=== PATIENT | female | born 1940 | race Caucasian/White ===

== ENCOUNTER 2020-10-24 10:15 | Emergency (ER) | payer OTHER ==
[~2020-10-24] VITALS: Ht 167.6 cm; Wt 67.6 kg
[2020-10-24] MEDS ORDERED: DILTIAZEM ER180 M2 PO (11:13)
[2020-10-24] MEDS ORDERED: ELIQUIS5 MG PO (11:14)
[2020-10-24] MEDS ORDERED: NORCO5 PO (11:14)
[2020-10-24] MEDS ORDERED: LIPITOR 10 MG10 M1 PO (11:14)
[2020-10-24] MEDS ORDERED: ALBUTEROL2.5 MG/0.5 INH (11:15)
[2020-10-24] MEDS ORDERED: FUROSEMIDE 20 M20 MG PO (11:15)
[2020-10-24] MEDS ORDERED: CARVEDILOL12.5 MG PO (11:16)
[2020-10-24] MEDS ORDERED: HYDRALAZINE 2525 MG PO (11:16)
[2020-10-24] MEDS ORDERED: WOMEN MULTIVIT1 EAC1 PO (11:16)
[2020-10-24] MEDS ORDERED: IMDUR 30 MG TAB30 M1 PO (11:17)
[2020-10-24] MEDS ORDERED: CEPHALEXIN500 MG PO (12:11)
[2020-10-24 12:36] VITALS: BP 98/60
--- NOTE | 2020-10-25 14:05 | EKG ---
[place] [address] ELECTROCARDIOGRAM REPORT Name: KELLI PHILLIPS Room: [facility]#: [id number] Admission: 10/24/20 Attend Phys: Discharge: 10/24/20 Date of : 42 Date of Service: 10/24/20 1059 Report #: [id number] THIS REPORT FOR: //name// [facility] ED Test Date: 2020-10-24 Test Time: 10:59:18 Pat Name: KELLI PHILLIPS Department: Room: Gender: Mrp Controller: : 1940 Requested By: Lew Ramirez Order Number: [id number] MD: Jamarcus Tian Measurements Intervals [place] Rate: 78 P: ND: QRS: -60 QRSD: 104 T: 86 QT: 420 QTc: 479 Interpretive Statements Atrial fibrillation Left anterior fascicular block Anteroseptal infarct, 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
== END 2020-10-24 12:38 | disposition home or self-care (01) ==
LOC: M.ERS 10:15
DX: J40 Bronchitis, not specified as acute or chronic (principal); Z88.0 Allergy status to penicillin; Z79.899 Other long term (current) drug therapy; Z86.73 Personal history of transient ischemic attack (TIA), and cerebral infarction without residual deficits; Z90.710 Acquired absence of both cervix and uterus; Z85.3 Personal history of malignant neoplasm of breast

== ENCOUNTER 2021-01-14 06:10 | Inpatient (IN) | payer OTHER ==
[~2021-01-14] VITALS: Ht 152.4 cm; Wt 86.1 kg
[2021-01-14] VITALS (108 sets, daily range): BP systolic 66–148; BP diastolic 19–87
--- NOTE | ~2021-01-14 | PROC ---
[facility] [address] [place] [address] PROCEDURE REPORT Name: KELLI PHILLIPS Room: [address] IN M.R.#: [id number] Admission: 01/14/21 Attend Phys: Ramila Vaca Discharge: 02/08/21 Date of : 42 Report #: [id number] THIS REPORT FOR: cc: Anayeli Montanez NP, Michelle NP [facility],Medical Records Staff ~ For GI report, please see the Provation report in Perceptive 7 content. By: 0843Medical Records Staff GEOFFREY /DORETHA
[~2021-01-14 06:10] MED LIST: ALBUTEROL2.5 MG/0.5 INH; CARVEDILOL12.5 MG PO; CEPHALEXIN500 MG PO; DILTIAZEM ER180 M2 PO; ELIQUIS5 MG PO; FUROSEMIDE 20 M20 MG PO; HYDRALAZINE 2525 MG PO; IMDUR 30 MG TAB30 M1 PO; LIPITOR 10 MG10 M1 PO; NORCO5 PO; WOMEN MULTIVIT1 EAC1 PO
[2021-01-14 07:09] LABS: BE -23.2 mmol/L (-2 to +3); PCO2 24.3 mmHg (35.0-45.0)
[2021-01-14 07:11] LABS: pH 7.023 (7.340-7.450)
[2021-01-14 07:31] LABS: URINE BILIRUBIN NEGATIVE (Negative); URINE BLOOD NEGATIVE (Negative); URINE CLARITY CLEAR; URINE COLOR YELLOW; URINE GLUCOSE-RANDOM NEGATIVE (Negative); URINE KETONES NEGATIVE (Negative); URINE LEUKOCYTES-REFLEX NEGATIVE (Negative); URINE NITRITE-REFLEX NEGATIVE (Negative); URINE PROTEIN 1+ (Negative); URINE SPECIFIC GRAVITY >= 1.030 (1.005-1.030); URINE UROBILINOGEN 0.2 E.U./dl (0.2-1.0)
[2021-01-14 07:42] LABS: HEMOGLOBIN 9.3 gm/dL (12.0-15.0); MCH 29.5 pg (26.0-34.0); MCHC 33.2 g/dL (28.0-37.0); MCV 88.7 fL (80.0-100.0); MPV 7.6 fl. (7.2-11.1); NUCLEATED RBCS 0 /100WBC; PLATELET COUNT* 253 thou/uL (150-400); RBC 3.15 mil/uL (4.20-5.00); RDW-CV 16.8 % (10.5-14.5); WBC 10.3 thou/uL (4.0-11.0)
[2021-01-14 07:50] LABS: CALCIUM 6.5 mg/dL (8.5-10.1); CREATININE 9.3 mg/dL (0.6-1.3)
[2021-01-14 07:53] LABS: POTASSIUM 8.1 mmol/L (3.5-5.1)
[2021-01-14 07:54] LABS: MAGNESIUM 2.3 mg/dL (1.8-2.4); TOTAL BILIRUBIN 0.7 mg/dL (<0.1-1.0); TOTAL PROTEIN 6.6 g/dL (6.4-8.2)
[2021-01-14 09:09] LABS: ABSOLUTE MONOCYTES 0.1 thou/uL (0.0-1.2); ABSOLUTE NEUTROPHILS 9.2 thou/uL (1.6-8.1)
[2021-01-14 09:10] LABS: ANISOCYTOSIS 2+; BURR CELLS 2+; PLATELET ESTIMATE ADEQUATE
--- NOTE | 2021-01-14 10:03 | EKG ---
[place] [address] ELECTROCARDIOGRAM REPORT Name: JACQUELINEKELLI P Room: [address] IN [facility]#: [id number] Admission: 01/14/21 Attend Phys: Nemesio Velasquez Discharge: 02/08/21 Date of : 42 Date of Service: 01/14/21 0826 Report #: [id number] THIS REPORT FOR: //name// [facility] ED Test Date: 2021-01-14 Test Time: 08:26:31 Pat Name: INES PHILLIPS Department: Room: [facility] Gender: F Meter Changes Records Clerk: SAEID : 1940 Requested By: Romeo Fajardo Order Number: [id number] MD: Carl De Leon Measurements Intervals [place] Rate: 114 P: [place]: QRS: 83 QRSD: 253 T: -18 QT: 419 QTc: 578 Interpretive Statements sinus rhythm with first degree AV block LBBB artifact noted No previous ECG available for comparison Electronically Signed On 01-14-2021 10:03:48 CDT by Carl De Leon [email or web address] <ELECTRONICALLY SIGNED> By: Carl De Leon MD, FACC 01/14/21 1003 5 5 Carl De Leon MD, [facility] /EPI
--- NOTE | 2021-01-14 10:07 | EKG ---
[place] [address] ELECTROCARDIOGRAM REPORT Name: JACQUELINEKELLI Room: [address] IN [facility]#: [id number] Admission: 01/14/21 Attend Phys: Nemesio Velasquez Discharge: 02/08/21 Date of : 42 Date of Service: 01/14/21925 Report #: [id number] THIS REPORT FOR: //name// [facility] ED Test Date: 2021-01-14 Test Time: 09:26:34 Pat Name: INES PHILLIPS Department: Room: [facility] Gender: F Filing Clerk: SCOTT : 1940 Requested By: Romeo Fajardo Order Number: [id number] MD: Carl De Leon Measurements Intervals [place] Rate: 71 P: [place]: QRS: 133 QRSD: 148 T: 52 QT: 496 QTc: 540 Interpretive Statements sinus rhythm with first degree av block low voltage artifact noted Nonspecific intraventricular conduction delay Probable anterolateral infarct, old Compared to ECG 01/14/2021 08:26:31 LEFT BUNDLE BRANCH BLOCK no longer seen Electronically Signed On 01-14-2021 10:07:15 CDT by Carl De Leon [email or web address] <ELECTRONICALLY SIGNED> By: Carl De Leon MD, FACC 01/14/21 1007 5 5 Carl De Leon MD, FAC /EPI
--- NOTE | 2021-01-14 11:03 | NUR ---
TOOTH GRINDER AT BEDSIDE AT 1050
[2021-01-14 13:07] LABS: CALCIUM 7.5 mg/dL (8.5-10.1); CREATININE 8.7 mg/dL (0.6-1.3); MAGNESIUM 2.1 mg/dL (1.8-2.4)
[2021-01-14 13:12] LABS: POTASSIUM 6.8 mmol/L (3.5-5.1)
[2021-01-14 13:45] LABS: BE -4.1 mmol/L (-2 to +3)
[2021-01-14 13:52] LABS: PCO2 58.5 mmHg (35.0-45.0); PO2 40.4 mmHg (75.0-100.0); pH 7.232 (7.340-7.450)
[2021-01-14 14:10] LABS: BE -7.4 mmol/L (-2 to +3); PCO2 29.4 mmHg (35.0-45.0); pH 7.373 (7.340-7.450)
[2021-01-14 14:14] LABS: PO2 137.9 mmHg (75.0-100.0)
[2021-01-14 18:58] LABS: URINE BILIRUBIN NEGATIVE (Negative); URINE BLOOD 3+ (Negative); URINE COLOR YELLOW; URINE GLUCOSE-RANDOM NEGATIVE (Negative); URINE KETONES NEGATIVE (Negative); URINE LEUKOCYTES-REFLEX NEGATIVE (Negative); URINE NITRITE-REFLEX NEGATIVE (Negative); URINE PROTEIN 2+ (Negative); URINE SPECIFIC GRAVITY 1.025 (1.005-1.030); URINE UROBILINOGEN 0.2 E.U./dl (0.2-1.0)
[2021-01-14 18:59] LABS: SQUAMOUS 4-10 Moderate /LPF (0-3); URINE CLARITY HAZY
[2021-01-14 19:00] LABS: BACTERIA-REFLEX None Seen /HPF (None Seen); CASTS None Seen /LPF (None Seen); CRYSTALS None Seen /LPF (None Seen); MUCUS 0-3 Light strn/LPF (None Seen); URINE RBC 3-10 Few /HPF (0-2); URINE WBC-REFLEX 0-5 Rare /HPF (0-5)
[2021-01-15] VITALS (36 sets, daily range): BP systolic 96–157; BP diastolic 32–58
[2021-01-15 02:06] LABS: IgA 193 mg/dL (64-422); IgG 886 mg/dL (586-1602); IgM 161 mg/dL (26-217)
--- NOTE | 2021-01-15 04:09 | NUR ---
ASSUMED CARE AT 1900H, ON RA AND TOLERATED. PT WAS CONFUSED, LETHURGIC AND AT TIMES OBEYED COMMANDS. ON LEVO DRIP AND TITRATED. NO DISTRESS NOTED. PT OFTEN HAD INVOLUNTARY MOVEMENT OF HER UPPER EXTRIMITIES. CONTINUE MONITORING AND TOWARDS GOALS. LEVO AT 14MICS.
[2021-01-15 04:41] LABS: BE -9.1 mmol/L (-2 to +3); PO2 77.9 mmHg (75.0-100.0); pH 7.325 (7.340-7.450)
[2021-01-15 05:41] LABS: ABSOLUTE LYMPHOCYTES 0.7 thou/uL (0.8-5.3); ABSOLUTE MONOCYTES 1.2 thou/uL (0.0-1.2); ABSOLUTE NEUTROPHILS 7.8 thou/uL (1.6-8.1); BASOPHILS 0.2 %; EOSINOPHILS 0.1 %; HEMATOCRIT 23.3 % (37.0-47.0); HEMOGLOBIN 7.8 gm/dL (12.0-15.0); LYMPHOCYTES 7.2 %; MCH 29.2 pg (26.0-34.0); MCHC 33.4 g/dL (28.0-37.0); MCV 87.4 fL (80.0-100.0); MONOCYTES 12.1 %; MPV 7.8 fl. (7.2-11.1); NUCLEATED RBCS 0 /100WBC; PLATELET COUNT* 185 thou/uL (150-400); POLYS 80.4 %; RBC 2.66 mil/uL (4.20-5.00); RDW-CV 16.5 % (10.5-14.5); WBC 9.7 thou/uL (4.0-11.0)
[2021-01-15 05:48] LABS: APTT 31.9 Seconds (25.0-31.3); INR 1.2; PROTIME 12.6 Seconds (9.20-11.50)
[2021-01-15 07:20] LABS: CALCIUM 6.2 mg/dL (8.5-10.1); PHOSPHORUS* 10.9 mg/dL (2.5-4.9)
[2021-01-15 07:21] LABS: CREATININE 5.7 mg/dL (0.6-1.3); POTASSIUM 5.5 mmol/L (3.5-5.1)
[2021-01-15 08:19] LABS: MAGNESIUM 1.8 mg/dL (1.8-2.4)
--- NOTE | 2021-01-15 10:21 | EKG ---
[place] [address] ELECTROCARDIOGRAM REPORT Name: JACQUELINEKELLI Room: [address] IN .#: [id number] Admission: 01/14/21 Attend Phys: Nemesio Velasquez Discharge: 02/08/21 Date of : 42 Date of Service: 01/15/21 0610 Report #: [id number] THIS REPORT FOR: //name// [facility] Test Date: 2021-01-15 Test Time: 06:10:06 Pat Name: INES PHILLIPS Department: Room: [address] Gender: F Switchboard Inspector: [id number] : 1940 Requested By: Nemesio Velasquez Order Number: [id number] Reading MD: Carl De Leon Measurements Intervals [place] Rate: 71 P: 88 NE: 182 QRS: -17 QRSD: 117 T: 9 QT: 433 QTc: 471 Interpretive Statements Sinus rhythm nonspecific ST segment changes late transition Atrial premature complexes Nonspecific intraventricular conduction delay Low voltage, extremity leads Compared to ECG 01/14/2021 09:26:34 Atrial premature complex(es) now present First degree AV block no longer present Electronically Signed On 01-15-2021 10:21:22 CDT by Carl De Leon [email or web address] <ELECTRONICALLY SIGNED> By: Carl De Leon MD, [facility] 01/15/21 1021 Carl De Leon MD, [facility] /EPI
--- NOTE | 2021-01-15 11:45 | NUR ---
No appreciable change in status from initial assessment. Pt is more responsive when talking to the MD, asked for pain med, received new order.
[2021-01-15 15:07] LABS: KAPPA FREE LIGHT CHAINS 151.1 mg/L (3.3-19.4); LAMBDA FREE LIGHT CHAINS 81.7 mg/L (5.7-26.3)
[2021-01-15 18:06] LABS: ANTI-DNA SCREEN 2 IU/mL (0-9); ANTI-RNP <0.2 AI (0.0-0.9); ANTI-SSA <0.2 AI (0.0-0.9); ANTIJO-I AB <0.2 AI (0.0-0.9)
[2021-01-15] MEDS ORDERED: CARVEDILOL12.5 MG PO (23:07)
[2021-01-15] MEDS ORDERED: FUROSEMIDE 40 M40 MG PO (23:08)
[2021-01-15] MEDS ORDERED: HYDRALAZINE 2525 MG PO (23:09)
[2021-01-15] MEDS ORDERED: LISINOPRIL5 MG PO (23:10)
[2021-01-15] MEDS ORDERED: COZAAR 25 MG TA25 M1 PO (23:10)
[2021-01-15] MEDS ORDERED: PERCOCET 10-321 EAC1 PO (23:12)
[2021-01-16] VITALS (11 sets, daily range): BP systolic 136–174; BP diastolic 43–87
--- NOTE | 2021-01-16 05:31 | NUR ---
ASSUMED CARE AT 1900H, ON RA AND TOLERATED. ON LEVO AND OFF AT MIDNIGHT. STILL WITH DIARRHEA. MORE AWAKE BUT STILL CONFUSED. NO FEVER AND NO DISTRESS. CONTINUE MONITORING AND TOWARDS GOALS.
--- NOTE | 2021-01-16 05:56 | NUR ---
REQUESTING UPDATE FROM DOCTORS.
[2021-01-16 06:27] LABS: HEMATOCRIT 21.2 % (37.0-47.0); HEMOGLOBIN 7.4 gm/dL (12.0-15.0); MCH 30.2 pg (26.0-34.0); MCHC 34.6 g/dL (28.0-37.0); MCV 87.3 fL (80.0-100.0); MPV 7.8 fl. (7.2-11.1); RBC 2.43 mil/uL (4.20-5.00); RDW-CV 16.5 % (10.5-14.5); WBC 9.4 thou/uL (4.0-11.0)
[2021-01-16 06:34] LABS: CALCIUM 6.5 mg/dL (8.5-10.1); POTASSIUM 3.9 mmol/L (3.5-5.1)
--- NOTE | 2021-01-16 13:23 | CON ---
[address] [address] CONSULTATION Name: KELLI PHILLIPS Nenita Room: [address] IN M.R.#: [id number] Admission: 01/14/21 Attend Phys: Ramila Vaca Discharge: 02/08/21 Date of : 42 Report #: [id number] THIS REPORT FOR: cc: Anayeli Montanez NP, Michelle NP Khan, Abid R. MD ~ DATE OF CONSULTATION: 01/14/2021 NEPHROLOGY CONSULTATION CONSULTING PHYSICIAN: Nemesio Velasquez DO REASON FOR CONSULTATION: Acute kidney injury. HISTORY OF PRESENT ILLNESS: A 80-year-old female brought in with altered mental status, hypotension and severe acute kidney injury and hyperkalemia. She was found to be covered in blood and fleas and is unkempt, has some altered mental status, is difficult to obtain any meaningful history from her. She tells me that she has not seen a doctor in a while, but believes she did see a kidney doctor at one time. She had a creatinine 9.3 on admission. No previous comparison available. She was found to have a potassium of 8. She was treated with medical measures for that, her bradycardia did improve. She has received 3 liters of IV fluids. She only put out 25-50 mL of urine. REVIEW OF SYSTEMS: Constitutional, psych, heme, eyes, ENT, respiratory, cardiac, GI, , endocrine, all negative except as documented above. PAST MEDICAL HISTORY: Unknown. HOME MEDICATIONS: None are listed. SOCIAL HISTORY: No alcohol. FAMILY HISTORY: . VITAL SIGNS: Blood pressure is 103/29, pulse 70, respirations 15, temperature 35.9, blood pressures were as low as 70 systolic. GENERAL: No distress. EYES: Open eyes. EARS: Externally normal. CARDIOVASCULAR: Regular rate. LUNGS: Diminished. ABDOMEN: Soft. MUSCULOSKELETAL: Right lower extremity lymphedema. She has pedal edema as well. PSYCHIATRIC: [place] [address] CONSULTATION Name: INES PHILLIPS Room: [address] IN ..#: [id number] Admission: 01/14/21 Attend Phys: Ramila Vaca Discharge: Date of : 42 Report #: [id number] LABORATORY DATA: White cell count 10.3, hemoglobin 9.3, platelets 253. Sodium 134, potassium 8.1, chloride 98, bicarbonate 8, BUN 174, creatinine 9.3, glucose 106, calcium 6.5, magnesium 2.3, albumin 3. ABG 7.02, 24, 6. UA shows 1+ protein. Chest x-ray is reviewed. ASSESSMENT: 1. Severe acute kidney injury in the setting of significant hypotension, likely a component of volume depletion and now likely acute tubular necrosis with an admission, BUN 174, creatinine 9.3. Baseline creatinine unknown. No outpatient records from our office. No previous records at this facility. 2. Severe hyperkalemia on admission with a potassium 8.1 along with bradycardia and EKG changes. 3. Metabolic acidosis with an admission ABG of 7.02, 24 and 6. 4. Hypotension/shock, requiring Levophed. PLAN: Temporary dialysis catheter has been placed by surgery. She will undergo emergent dialysis today. We will plan dialysis again tomorrow to help with the hyperkalemia. Bicarbonate has been administered. Temporizing measures for hyperkalemia have been administered. She is in a stable rhythm at present. Hypocalcemia, calcium was 6.5. Calcium gluconate was given. Likely has an element of hyperphosphatemia and will monitor this. Levophed has been initiated and workup of hypotension and has been initiated. We will defer antibiotics and further management to primary service. We will check KAILASH, ANCA, anti-GBM antibody, SPEP, serum immunofixation, free light chain assay and CK as well as a renal ultrasound. Dialysis will be performed based on medical necessity as she has life-threatening hyperkalemia. Case was discussed with Dr. Fajardo, ER nurse and dialysis nurse. The patient is critically ill. Thirty-five minutes in the patient's care time spent. Thank you for requesting my opinion in the care and management of this patient. <ELECTRONICALLY SIGNED> By: Rhys Cotter MD 01/16/21 1323 1011 1132Abiramila Cotter MD /nt
--- NOTE | 2021-01-16 13:24 | NUR ---
1200- Reassessment performed per ICU protocol. No changes from previous assessment. Pt is now up in chair.
--- NOTE | 2021-01-16 17:12 | NUR ---
1600-Reassessment done per ICU protocol. No changes from previous assessment. Lung sounds remain crackly, however wheezing has improved slightly since lasix and breathing treatment were given. Improved urine output.
--- NOTE | 2021-01-16 19:28 | NUR ---
184- Notified Dr. Lacy (via youcallmd) of positive CDIFF result. Orders placed (see EMAR)
[2021-01-17] VITALS (24 sets, daily range): BP systolic 143–176; BP diastolic 49–73
[2021-01-17 02:05] LABS: HEPATITIS B SURFACE AG Negative (Negative)
--- NOTE | 2021-01-17 04:37 | NUR ---
ASSUMED CARE AT 1900H, ON RA AND TOLERATED. PT WAS MORE WITH IT AND AWAKE. COMPLAINED OF LEG PAIN, PRN MED GIVEN. PT UP TO BED WITH TWO ASSIST AND TOLERATED. ACCORDING TO HER, SHE'S USED WHEELCHAIR AT HOME AND STOOD UP OFTEN TIMES. NOTED PT HAD SLEEP APNEA, NC ON 2LPM. CONTINUE MONITORING AND TOWARDS GOALS.
[2021-01-17 06:07] LABS: HEMATOCRIT 20.1 % (37.0-47.0); MCH 29.4 pg (26.0-34.0); MCHC 33.3 g/dL (28.0-37.0); MCV 88.3 fL (80.0-100.0); MPV 7.9 fl. (7.2-11.1); RBC 2.28 mil/uL (4.20-5.00); RDW-CV 16.7 % (10.5-14.5); WBC 9.8 thou/uL (4.0-11.0)
[2021-01-17 06:09] LABS: HEMOGLOBIN 6.7 gm/dL (12.0-15.0)
[2021-01-17 06:20] LABS: CALCIUM 6.6 mg/dL (8.5-10.1); CREATININE 4.1 mg/dL (0.6-1.3); POTASSIUM 4.2 mmol/L (3.5-5.1)
--- NOTE | 2021-01-17 13:23 | NUR ---
Met with patient at bedside to introduce role of CM. Patient slightly confused and drowsy but was able to verbalize that she lives at home with her in a house. She stated that there are stairs in the home but she uses a w/c for mobility. Patient stated that she has used HH in the past but does not recall name of company. Hx of SNF and patient stated that she WILL NOT go back to SNF because she had a poor experience. Patient is open to ARU and HH if needed. Advised patient that therapies will need to work with patient to help determine dc dispo. SNF may be the best course of tx but subject matter will be revisited once therapies have seen patient. Patient stated that she does use O2 at home intermittently. She also stated that she needs help at home with cleaning. CM to provide private duty resources. Called Tony to verify the above information. He stated that he also doesn't recall the name of the HH company but they had HH services 3-4 wks ago. Hx of SNF at [facility] in August of this year and patient left [facility] to go to [facility]. stated that patient did not have a good experience with [facility] which is why she changed to [facility]. stated that patient is pretty independent with ADLS and patient is able to stand and pivot in and out of w/c. Per , patient uses 2-3L O2. No hx of bipap/cpap, dialysis, BHS or infusion therapy. Hx of radiation tx for cancer. Plan of care: Patient currently in C-diff precautions. was told he cannot visit patient due to c-diff but per infection control nurse, can visit as long as he wears PPE. CM to share the above with patient. Patient to recieve transfusion today and will downgrade to tele. Therapies ordered to help with dc dispo. Temp dialysis cath placed 01/14 for emergent dialysis need on 01/14 and 01/15. Nephro following to determine continued dialysis need. No need for dialysis today per . Possible SNF need at nd. CM to continue to follow
[2021-01-17 17:06] LABS: M-SPIKE Not Observed g/dL (Not Observed)
[2021-01-18] VITALS (9 sets, daily range): BP systolic 102–158; BP diastolic 61–79
[2021-01-18 04:28] LABS: HEMATOCRIT 24.3 % (37.0-47.0); HEMOGLOBIN 8.2 gm/dL (12.0-15.0); MCH 28.5 pg (26.0-34.0); MCHC 33.6 g/dL (28.0-37.0); MCV 84.7 fL (80.0-100.0); MPV 7.3 fl. (7.2-11.1); RBC 2.87 mil/uL (4.20-5.00); RDW-CV 18.4 % (10.5-14.5); WBC 14.3 thou/uL (4.0-11.0)
[2021-01-18 04:51] LABS: ALBUMIN 1.8 g/dL (3.4-5.0); CALCIUM 6.3 mg/dL (8.5-10.1); CREATININE 3.9 mg/dL (0.6-1.3); TOTAL BILIRUBIN 0.6 mg/dL (<0.1-1.0); TOTAL PROTEIN 5.1 g/dL (6.4-8.2)
--- NOTE | 2021-01-18 16:15 | NUR ---
Pt has been sleeping soundly each time CM visited to discuss SNF. Called Tony [phone] and he hasn't been able to speak to her either, nurse told him she was sleeping. Discussed choices for SNF, report to ,Tony that pt [facility] to [facility] or [place] facilities. approves of [place] and [facility] of . Referrals sent and will follow up in am with pt and facilities. [facility] [phone] fax [phone] [facility] [phone] Plan is for discharge tomorrow or next day depending on labs and number of stools per day.
--- NOTE | 2021-01-18 19:26 | NUR ---
AT ABOUT 1845, PT BEGAN TO DEMONSTRATE CHANGES IN HEART RHYTHM. ONE SEVERAL-SECOND BOUT OF SVT, FOLLOWED BY A SUSTAINED RUN OF v-TACH, AND FINALLY TO AFIB WITH RVR. BP CHECKED. 130/85. PHYSICIAN PAGED. PT IS RESPONSIVE, BUT VERY TIRED AND REPORTS NAUSEA. DILTIAZEM DRIP ORDERED BY PHYSICIAN AND INITIATED BY NURSING STAFF. HR IS STILL AFIB, WITH RATE 120-130.
[2021-01-19] VITALS (7 sets, daily range): BP systolic 112–134; BP diastolic 51–76
[2021-01-19 05:52] LABS: HEMOGLOBIN 8.9 gm/dL (12.0-15.0); MCH 27.8 pg (26.0-34.0); MCHC 31.8 g/dL (28.0-37.0); MCV 87.4 fL (80.0-100.0); MPV 7.8 fl. (7.2-11.1); RBC 3.2 mil/uL (4.20-5.00); RDW-CV 18.3 % (10.5-14.5); WBC 14.7 thou/uL (4.0-11.0)
[2021-01-19 06:33] LABS: ALBUMIN 1.8 g/dL (3.4-5.0); CALCIUM 6.8 mg/dL (8.5-10.1); CREATININE 3.5 mg/dL (0.6-1.3); TOTAL BILIRUBIN 0.5 mg/dL (<0.1-1.0); TOTAL PROTEIN 5.1 g/dL (6.4-8.2)
--- NOTE | 2021-01-19 06:41 | NUR ---
ASSUMED PT CARE AT APPROX 1930. PT IS ASLEEP BUT WAKES UP WHEN NAME IS CALLED, PT ORIENTED TO SELF, PLACE AND SITUATION-FORGETFUL MOST OF THE TIME. PT IS AFIB ON THE GIS SPECIALIST-CARDIZEM DRIP INFUSING TO KEEP RATE CONTROLLED. PT IS CLOSELY MONITORED. HIGH FALL PRECAUTIONS IN PLACE.
--- NOTE | 2021-01-19 09:53 | NUR ---
Received called back from [facility], unable to accept pt.
--- NOTE | 2021-01-19 13:03 | NUR ---
Case and plan of care reviewed with physician each weekday during patient's length of stay. Continue plan of care per physician. Discharged cxld for today. Pt went into Afib/RVR during the night. Cardiology consulted. Pt started on IV Diltiazem and Amiodarone Bolus to restore NSR. ECHO ordered, intermediate teacher antiarrhythmic will dtermed based upon results. HGB 8.9. IV Vanco continued. CM will continue to follow and keep Skilled facility updated. Benji Montoya will be up today to evaluate pt for admission when she is medically stable.
--- NOTE | 2021-01-19 17:45 | 2DMMODE ---
[place] [address] 2 D/M-MODE ECHOCARDIOGRAM Name: JACQUELINEKELLI P Room: [address] IN [facility].#: [id number] Admission: 01/14/21 Attend Phys: Nemesio Velasquez Discharge: 02/08/21 Date of : 42 Date of Service: 01/19/21 1745 Report #: [id number] THIS REPORT FOR: cc: Anayeli Montanez NP, Michelle NP Liston, Michael J. MD [facility] ~ APPROVED REPORT Study performed: 01/19/2021 10:35:13 EXAM: Comprehensive 2D, Doppler, and color-flow Echocardiogram Patient Location: In-Patient BSA: 1.80 HR: 66 bpm BP: 126/69 mmHg Other Information Study Quality: Good Indications Atrial Fibrillation Hx of Stroke Echo Enhancing Agent Indication: Rule Out Septal Defect Agent(s) / Amount(s) Used: Agitated Saline 6 cc 2D Dimensions IVSd: 14.59 (7-11mm) LVOT Diam: 19.17 (18-24mm) LVDd: 41.91 mm PWd: 10.71 (7-11mm) Ascending Ao: 26.30 (22-36mm) LVDs: 36.39 (25-40mm) Aortic Root: 24.56 mm Volumes Left Atrial Volume (Systole) LA ESV Index: 41.30 mL/m2 Aortic Valve AoV Peak Gunnar.: 1.49 m/s AO Peak Gr.: 8.82 mmHg LVOT Max P.12 mmHg AO Mean Gr.: 4.65 mmHg LVOT Mean P.59 mmHg LVOT Max V: 0.53 m/[place] [address] 2 D/M-MODE ECHOCARDIOGRAM Name: INES PHILLIPS Room: [address] IN ..#: [id number] Admission: 01/14/21 Attend Phys: Nemesio Velasquez Discharge: Date of : 42 Date of Service: 01/19/21 1745 Report #: [id number] V2 VTI: 21.61 cm LVOT Mean V: 0.36 m/s МАРИЯ (VTI): 0.74 cm2 LVOT V1 VTI: 5.56 cm Mitral Valve MV Mean Gr.: 3.15 mmHg E/A Ratio: 3.38 MV Decel. Time: 193.96 ms MV E Max Gunnar.: 1.15 m/s MV PHT: 56.25 ms MVA (PHT): 3.91 cm2 TDI E/Lateral E': 11.50 E/Medial E': 12.78 Medial E' Gunnar.: 0.09 m/s Lateral E' Gunnar.: 0.10 m/s Pulmonary Valve PV Peak Gunnar.: 0.81 m/s PV Peak Gr.: 2.63 mmHg Tricuspid Valve RAP Estimate: 10.00 mmHg TR Peak Gr.: 51.41 mmHg RVSP: 61.41 mmHg PA Pressure: 61.41 mmHg Left Ventricle The left ventricle is normal size. There is akinesis of the mid to apical septum and anteroseptal anterior andrade. Mild concentric left ventricular hypertrophy. Left ventricular systolic function is moderate to severely decreased. LVEF is 30-35%. This study is not technically sufficient to allow evaluation of the LV diastolic function due to atrial fibrillation. Right Ventricle The right ventricle is normal size. The right ventricular systolic function is normal. Atria Left atrium is mildly dilated. Injection of bubbles documented no interatrial shunt. Right atrium is mildly dilated. Aortic Valve Aortic valve leaflets are mildly thickened. No aortic regurgitation is present. There is no aortic valvular stenosis. Mitral Valve There is mitral annular calcification. Mitral valve leaflets are mildly thickened. Mild mitral regurgitation[place] [address] 2 D/M-MODE ECHOCARDIOGRAM Name: INES PHILLIPS Nenita Room: [address] IN M.R.#: [id number] Admission: 01/14/21 Attend Phys: Nemesio Velasquez Discharge: Date of : 42 Date of Service: 01/19/21 1745 Report #: [id number] valve stenosis. Tricuspid Valve The tricuspid valve is normal in structure. Mild tricuspid regurgitation. The RVSP is 65-70 mmHg. Pulmonic Valve The pulmonary valve is normal in structure. There is no pulmonic valvular regurgitation. Great Vessels The aortic root is normal in size. IVC is dilated and collapses <50% with inspiration. Pericardium There is no pericardial effusion. <Conclusion> The left ventricle is normal size. Mild concentric left ventricular hypertrophy. Left ventricular systolic function is moderate to severely decreased. LVEF is 30-35%. This study is not technically sufficient to allow evaluation of the LV diastolic function due to atrial fibrillation. There is akinesis of the mid to apical septum and anteroseptal anterior andrade. Left atrium is mildly dilated. Right atrium is mildly dilated. There is mitral annular calcification. Mitral valve leaflets are mildly thickened. Mild mitral regurgitation. Mild tricuspid regurgitation. The RVSP is 65-70 mmHg. IVC is dilated and collapses <50% with inspiration. Injection of bubbles documented no interatrial shunt. <ELECTRONICALLY SIGNED> By: Tariq Chang MD, FACC 01/19/211744 44 44 Tariq Chang MD, FACC /INF
[2021-01-20 00:32] VITALS: BP 134/61
--- NOTE | 2021-01-20 02:48 | NUR ---
ASSUMED CARE OF PT AT 1900. PT IS ALERT TIMES 2 TO 3. VSS. PERRLA. PT HAS A OCONNOR IN PLACE. PT IS ON 2 LITERS O2. PT IS IN A FIB ON THE TELEMETRY. PT IS ON CARDIZEM 5 MG/HR. PT IS SLEEPING QUIETLY IN BED. RESPIRATIONS ARE EVEN AND NONLABORED. WILL CONTINUE TO MONITOR PT.
[2021-01-20 04:35] VITALS: BP 138/56
[2021-01-20 04:55] LABS: ALBUMIN 1.7 g/dL (3.4-5.0); CALCIUM 6.9 mg/dL (8.5-10.1); CREATININE 3.2 mg/dL (0.6-1.3); POTASSIUM 3.8 mmol/L (3.5-5.1); TOTAL BILIRUBIN 0.4 mg/dL (<0.1-1.0)
[2021-01-20 09:00] VITALS: BP 150/74
[2021-01-20 12:16] VITALS: BP 123/94
--- NOTE | 2021-01-20 12:21 | NUR ---
Referrals sent further out of area for SNF-Tony,spouse requested not to send referral to [facility] or [facility] ph [phone] fx [phone] [facility] ph [phone] fx [phone]
[2021-01-20 15:59] VITALS: BP 149/71
[2021-01-20 20:00] VITALS: BP 129/60
[2021-01-21] VITALS: BP 126/51
[2021-01-21 04:43] VITALS: BP 113/59
[2021-01-21 05:37] LABS: HEMATOCRIT 26.6 % (37.0-47.0); HEMOGLOBIN 8.8 gm/dL (12.0-15.0); MCH 28.3 pg (26.0-34.0); MCV 85.7 fL (80.0-100.0); MPV 7.7 fl. (7.2-11.1); RBC 3.11 mil/uL (4.20-5.00); RDW-CV 17.8 % (10.5-14.5); WBC 12.2 thou/uL (4.0-11.0)
[2021-01-21 05:50] LABS: CALCIUM 6.7 mg/dL (8.5-10.1); POTASSIUM 3.5 mmol/L (3.5-5.1)
--- NOTE | 2021-01-21 08:29 | NUR ---
ASSUMED CARE OF PT AFTER REPORT AT 1930. PT A&OX4. VSS. PHYSICAL ASSESSMENT COMPLETED AND CHARTED. PT ON RA. PT TRACING AIB ON TELE. PT COMPLAINED OF BACK PAIN-MED GIVEN PER MAR. TURNED TO SIDES. FALL PRECAUTIONS IN PLACE. CALL LIGHT WITHIN REACH.
[2021-01-21 09:00] VITALS: BP 141/76
--- NOTE | 2021-01-21 11:18 | EKG ---
[place] [address] ELECTROCARDIOGRAM REPORT Name: JACQUELINEKELLI Nenita Room: [address] IN ..#: [id number] Admission: 01/14/21 Attend Phys: Nemesio Velasquez Discharge: 02/08/21 Date of : 42 Date of Service: 01/21/21 1036 Report #: [id number] THIS REPORT FOR: //name// [facility] Test Date: 2021-01-21 Test Time: 10:36:01 Pat Name: INES PHILLIPS Department: Room: [address] Gender: F Computer Systems Architect: SCOTT : 1940 Requested By: Tri Nichols Order Number: [id number] Reading MD: Carl De Leon Measurements Intervals [place] Rate: 102 P: [place]: QRS: 54 QRSD: 93 T: 195 QT: 372 QTc: 485 Interpretive Statements Atrial fibrillation Ventricular premature complex Anterior infarct, old Abnormal T, consider ischemia, lateral leads Compared to ECG 01/19/2021 15:53:19 Ventricular premature complex(es) now present Prolonged QT interval no longer present Myocardial infarct finding still present Electronically Signed On 01-21-2021 11:18:26 CDT by Carl De Leon [email or web address] <ELECTRONICALLY SIGNED> By: Carl De Leon MD, FACC 01/21/21 1118 1036 Carl De Leon MD, FAC /EPI
[2021-01-21 12:00] VITALS: BP 155/98
--- NOTE | 2021-01-21 16:17 | NUR ---
Case and plan of care reviewed with physician each weekday during patient's length of stay. Continue plan of care per physician orders. Cardiology folowing r/t onset Afib-Rate reasonably stable w/ episodes RVR still occurring, medication adjustmt ordered. No anticoagulation yet due to anemia Hgb 8.8 and guiac + stool 01/19. Plan is for discharge once cardiac clears for discharge Anticipating fci need. Today [facility] and [facility] declined. Both stated feel pt better candidate for LTC. Fax, this am, referral to [facility] and [facility], awaiting response back.
[2021-01-21 17:56] VITALS: BP 89/40
[2021-01-21 20:00] VITALS: BP 124/65
[2021-01-22] VITALS: BP 141/71
[2021-01-22 04:48] VITALS: BP 130/56
--- NOTE | 2021-01-22 07:54 | NUR ---
ASSUMED CARE OF PT AFTER REPORT AT 1930. PT A&OX4. VSS. PHYSICAL ASSESSMENT COMPLETED AND CHARTED. PT TRACING AFIB ON TELE HR 120'S-140'S-MED GIVEN PER MAY. PT COMPLAINED OF SOB-O2 SAT 92%-PLACED ON O2 AT 2LNC FOR COMFORT. PT COMPLAINED OF BACK & ANKLE PAIN-PROVIDER MADE AWARE WITH NEW ORDER. FALL PRECAUTIONS IN PLACE. CALL LIGHT WITHNI REACH.
[2021-01-22 09:00] VITALS: BP 152/80
[2021-01-22 09:29] LABS: HEMATOCRIT 24.9 % (37.0-47.0); HEMOGLOBIN 8.1 gm/dL (12.0-15.0); MCH 28.2 pg (26.0-34.0); MCHC 32.7 g/dL (28.0-37.0); MCV 86.2 fL (80.0-100.0); MPV 7.7 fl. (7.2-11.1); NUCLEATED RBCS 0 /100WBC; PLATELET COUNT* 279 thou/uL (150-400); RBC 2.89 mil/uL (4.20-5.00); RDW-CV 17.7 % (10.5-14.5); WBC 12.6 thou/uL (4.0-11.0)
[2021-01-22 09:45] LABS: ALBUMIN 1.6 g/dL (3.4-5.0); CALCIUM 6.7 mg/dL (8.5-10.1); CREATININE 2.8 mg/dL (0.6-1.3); POTASSIUM 3.5 mmol/L (3.5-5.1); TOTAL BILIRUBIN 0.4 mg/dL (<0.1-1.0); TOTAL PROTEIN 4.6 g/dL (6.4-8.2)
[2021-01-22 10:16] LABS: ABSOLUTE LYMPHOCYTES 0.6 thou/uL (0.8-5.3); HYPOCHROMASIA Occasional; MICROCYTES Occasional; PLATELET ESTIMATE ADEQUATE
[2021-01-22 10:17] LABS: ANISOCYTOSIS Occasional
[2021-01-22 12:37] VITALS: BP 130/63
[2021-01-22 16:52] VITALS: BP 119/66
[2021-01-22 20:00] VITALS: BP 112/51
[2021-01-23] VITALS: BP 136/61
[2021-01-23 04:00] VITALS: BP 129/72
[2021-01-23 06:45] LABS: ABSOLUTE LYMPHOCYTES 0.7 thou/uL (0.8-5.3); ABSOLUTE MONOCYTES 0.6 thou/uL (0.0-1.2); ABSOLUTE NEUTROPHILS 12.2 thou/uL (1.6-8.1); BASOPHILS 0.3 %; EOSINOPHILS 0.2 %; HEMATOCRIT 24.6 % (37.0-47.0); HEMOGLOBIN 8.1 gm/dL (12.0-15.0); LYMPHOCYTES 5.2 %; MCH 28.3 pg (26.0-34.0); MCHC 32.8 g/dL (28.0-37.0); MCV 86.2 fL (80.0-100.0); MONOCYTES 4.7 %; MPV 7.2 fl. (7.2-11.1); NUCLEATED RBCS 0 /100WBC; PLATELET COUNT* 298 thou/uL (150-400); POLYS 89.6 %; RBC 2.85 mil/uL (4.20-5.00); RDW-CV 17.5 % (10.5-14.5); WBC 13.6 thou/uL (4.0-11.0)
[2021-01-23 06:57] LABS: ALBUMIN 1.6 g/dL (3.4-5.0); CALCIUM 6.8 mg/dL (8.5-10.1); CREATININE 2.5 mg/dL (0.6-1.3); POTASSIUM 3.6 mmol/L (3.5-5.1); TOTAL BILIRUBIN 0.3 mg/dL (<0.1-1.0); TOTAL PROTEIN 4.7 g/dL (6.4-8.2)
--- NOTE | 2021-01-23 07:01 | NUR ---
ASSUMED CARE OF PT AFTER REPORT AT 1930. PT A&OX4. VSS. PHYSICAL ASSESSMENT COMPLETED AND CHARTED. PT ON O2 AT 2L NC. PT TRACING AFIB ON TELE. PT COMPLAINED OF BACK & ANKLE PAIN-MED GIVEN PER MAY. FALL PRECAUTIONS IN PLACE. CALL LIGHT WITHIN REACH.
[2021-01-23 08:00] VITALS: BP 132/72
--- NOTE | 2021-01-23 10:04 | EKG ---
[place] [address] ELECTROCARDIOGRAM REPORT Name: KELLI PHILLIPS Room: [address] IN ..#: [id number] Admission: 01/14/21 Attend Phys: Nemesio Velasquez Discharge: 02/08/21 Date of : 42 Date of Service: 01/22/212000 Report #: [id number] THIS REPORT FOR: //name// [facility] Test Date: 2021-01-22 Test Time: 20:01:53 Pat Name: INES PHILLIPS Department: Room: [facility] Gender: F Housekeeping Aid: BXIONG : 1940 Requested By: Tri Nichols Order Number: [id number] Reading MD: German Jones Measurements Intervals [place] Rate: 98 P: [place]: QRS: 146 QRSD: 115 T: 197 QT: 384 QTc: 491 Interpretive Statements Atrial fibrillation Left posterior fascicular block Anterior infarct, old Borderline repolarization abnormality Compared to ECG 01/21/2021 10:36:01 Left posterior fascicular block now present Ventricular premature complex(es) no longer present T-wave abnormality no longer present Possible ischemia no longer present Myocardial infarct finding still present Electronically Signed On 01-23-2021 10:04:17 CDT by German Jones [email or web address] <ELECTRONICALLY SIGNED> By: Javid Jones MD, FACC 01/23/21 1004 00 00 Javid Jones MD, [facility] /EPI
[2021-01-23 16:30] VITALS: BP 136/74
[2021-01-23 20:00] VITALS: BP 130/53
[2021-01-24] VITALS: BP 122/68
[2021-01-24 04:00] VITALS: BP 132/65
--- NOTE | 2021-01-24 04:17 | NUR ---
PT ALERT, ORIENTED, FORGETFUL. PT NEEDING ENCOURAGEMENT TO TURN. HYDROCODONE GIVEN FOR PAIN. WASHER CARCASS TRACING SR.
[2021-01-24 04:33] LABS: ABSOLUTE LYMPHOCYTES 0.7 thou/uL (0.8-5.3); ABSOLUTE MONOCYTES 0.6 thou/uL (0.0-1.2); ABSOLUTE NEUTROPHILS 11.4 thou/uL (1.6-8.1); EOSINOPHILS 0.2 %; HEMATOCRIT 25.7 % (37.0-47.0); HEMOGLOBIN 8.3 gm/dL (12.0-15.0); LYMPHOCYTES 5.6 %; MCH 28.2 pg (26.0-34.0); MCHC 32.1 g/dL (28.0-37.0); MONOCYTES 4.4 %; MPV 7.3 fl. (7.2-11.1); NUCLEATED RBCS 0 /100WBC; PLATELET COUNT* 302 thou/uL (150-400); POLYS 89.8 %; RBC 2.92 mil/uL (4.20-5.00); RDW-CV 17.5 % (10.5-14.5); WBC 12.7 thou/uL (4.0-11.0)
[2021-01-24 04:54] LABS: ALBUMIN 1.7 g/dL (3.4-5.0); CREATININE 2.6 mg/dL (0.6-1.3); POTASSIUM 3.7 mmol/L (3.5-5.1); TOTAL BILIRUBIN 0.3 mg/dL (<0.1-1.0); TOTAL PROTEIN 4.8 g/dL (6.4-8.2)
--- NOTE | 2021-01-24 09:19 | EKG ---
[place] [address] ELECTROCARDIOGRAM REPORT Name: KELLI PHILLIPS Room: [address] IN ..#: [id number] Admission: 01/14/21 Attend Phys: Nemesio Velasquez Discharge: 02/08/21 Date of : 42 Date of Service: 01/19/21 1553 Report #: [id number] THIS REPORT FOR: //name// [facility] Test Date: 2021-01-19 Test Time: 15:53:19 Pat Name: INES PHILLIPS Department: Room: [facility] Gender: F Compensation Consulting Manager: SCOTT : 1940 Requested By: Tri Nichols Order Number: [id number] Reading MD: Carl De Leon Measurements Intervals [place] Rate: 101 P: ND: QRS: 69 QRSD: 100 T: 196 QT: 386 QTc: 501 Interpretive Statements Atrial fibrillation Probable anterior infarct, age indeterminate Lateral leads are also involved Prolonged QT interval Compared to ECG 01/18/2021 18:55:09 Prolonged QT interval now present Myocardial infarct finding still present rate has slowed down Electronically Signed On 01-24-2021 9:19:10 CDT by Carl D eLeon [email or web address] <ELECTRONICALLY SIGNED> By: Carl De Leon MD, FACC 01/24/21 0919 1553 1553 Carl De Leon MD, FACC /EPI
--- NOTE | 2021-01-24 10:21 | EKG ---
[place] [address] ELECTROCARDIOGRAM REPORT Name: JACQUELINEKELLI Room: [address] IN ..#: [id number] Admission: 01/14/21 Attend Phys: Nemesio Velasquez Discharge: 02/08/21 Date of : 42 Date of Service: 01/18/211854 Report #: [id number] THIS REPORT FOR: //name// [facility] Test Date: 2021-01-18 Test Time: 18:55:09 Pat Name: INES PHILLIPS Department: Room: [address] Gender: F Traffic Court Magistrate: MORIAH : 1940 Requested By: Nemesio Velasquez Order Number: [id number] Reading MD: Carl De Leon Measurements Intervals [place] Rate: 147 P: MD: QRS: 125 QRSD: 99 T: 243 QT: 310 QTc: 485 Interpretive Statements Atrial fibrillation with rapid V-rate low voltage Probable anterolateral infarct, age indeterm Compared to ECG 01/15/2021 06:10:06 Sinus rhythm no longer present Electronically Signed On 01-24-2021 10:21:21 CDT by Carl De Leon [email or web address] <ELECTRONICALLY SIGNED> By: Carl De Leon MD, FACC 01/24/21 1021 54 54 Carl De Leon MD, FACC /EPI
[2021-01-24 11:29] VITALS: BP 153/70
--- NOTE | 2021-01-24 15:47 | NUR ---
Case and plan of care reviewed with physician each weekday during patient's length of stay. Continue plan of care per physician orders. Plan to continue amiodarone load. Per Cardio: Ideally would recommend cardioversion to restore sinus rhythm. She would require anticoagulation following cardioversion. Will administer full dose lovenox today as a trial and repeat CBC in AM. If Hgb stable will start oral anticoag and perform AMBREEN/CV. CM continues to follow for discharge planning. Plan is to discharge to SNU. None have accepted to this date. Today called 10 am Luigi and Gaston AMAYA for update on referrals sent 01/21/21. No return call received by 2:30,placed another call and left voice message. No return call to this time.
[2021-01-24 16:11] VITALS: BP 142/78
[2021-01-24 20:20] VITALS: BP 143/79
[2021-01-25] VITALS (14 sets, daily range): BP systolic 89–182; BP diastolic 56–98
--- NOTE | 2021-01-25 08:30 | NUR ---
pt has wet lung sounds, diffuse pitting edema. Fluids stopped. Dr Lacy notified at this time for request of lasix.
[2021-01-25 08:53] LABS: HEMATOCRIT 26.4 % (37.0-47.0); HEMOGLOBIN 8.8 gm/dL (12.0-15.0); MCH 28.9 pg (26.0-34.0); MCHC 33.1 g/dL (28.0-37.0); MCV 87.4 fL (80.0-100.0); MPV 7.3 fl. (7.2-11.1); RBC 3.03 mil/uL (4.20-5.00); RDW-CV 17.8 % (10.5-14.5); WBC 10.2 thou/uL (4.0-11.0)
--- NOTE | 2021-01-25 08:58 | NUR ---
Luigi returned call and stated unable to accept pt. No reason given but had questions about Cdiff being cleared yet. Explained on antibx for additional weeks but stools have returned to formed/solid.
[2021-01-25 08:59] LABS: CALCIUM 7.6 mg/dL (8.5-10.1); CREATININE 2.4 mg/dL (0.6-1.3); POTASSIUM 4.1 mmol/L (3.5-5.1)
--- NOTE | 2021-01-25 09:14 | NUR ---
0900-PT TURNED TO L SIDE, CLEANED OF STOOL
--- NOTE | 2021-01-25 09:29 | NUR ---
PATIENT SLEPT OFF AND ON DURING THE NIGHT. VSS ON 2L 02 VIA NASAL CANNULA, ALTHOUGH PULSE TACHY. PATIENTS IV FLUIDS TURNED DOWN TO 5ML/HR TKO D/T PATIENT LUNGS SOUNDING COARSE AND PATIENT HAVING SLIGHT COUGH. PATIENT SOUNDING MUCH BETTER SINCE FLUIDS TURNED DOWN. PATIENT HAS REMAINED NPO SINCE MIDNIGHT EXCEPT FOR SMALL SIP OF WATER AND SMALL BITE OF APPLESAUCE D/T PATIENT WANTING PAIN MEDICATION CRUSHED IN APPLESAUCE AT APPROXIMATELY 0330. PATIENT REMAINS IN ISOLATION FOR POSITIVE C-DIFF. MEDICATIONS GIVEN ORDERED AND CHARTED. PATIENT DOES C/O SORE THROAT WHEN SWALLOWING. OCONNOR TO DEPENDENT DRAINAGE WITH YELLOW URINE OUTPUT. PATIENT REFUSED LABS DURING THE AM PER LAB. NIGHT NURSE WAS UNAWARE THAT LAB WAS TOLD BY ANOTHER NURSE ON ANOTHER SHIFT THAT RIGHT IJ DID NOT DRAW. LABS DRAWN THIS AM BY FANCY NEEDLEWORKER. SPOKE WITH CARDIOLOGY NURSE PRACTITIONER THIS AM ABOUT LABS NEEDING TO BE REDRAWN D/T PLANNED AMBREEN/CARDIOVERSION TODAY. FALL PRECAUTIONS IN PLACE AND HOURLY ROUNDS MADE. WILL CONTINUE WITH PLAN OF CARE AND NURSING TO MONITOR.
--- NOTE | 2021-01-25 16:04 | TEE ---
[place] [address] TRANSESOPHAGEAL ECHOCARDIOGRAM Name: KELLI PHILLIPS Room: [address]#: [id number] Admission: 01/14/21 Attend Phys: Nemesio Velasquez Discharge: 02/08/21 Date of : 42 Date of Service: 01/25/21 1604 Report #: [id number] THIS REPORT FOR: cc: Anayeli Montanez NP, Michelle NP Liston, Michael J. MD [facility] ~ APPROVED REPORT Study performed: 01/25/2021 14:13:50 EXAM: Transesophageal Echocardiogram Patient Location: In-Patient Room #: [facility] BSA: 1.82 HR: 121 bpm BP: 147/70 mmHg Rhythm: NSR Other Information Study Quality: Good Indications Atrial Fibrillation Echo Enhancing Agent Indication: Rule out Shunt Agent(s) / Amount(s) Used: Agitated Saline 10 cc Procedure After obtaining informed consent, patient underwent transesophageal echo in the Bedside. Type of Sedation : Conscious Sedation Sedation was administered by Ev Olivarez RN. Sedation start time: 1410 Case end Time: 1432 Sedation was achieved intravenously with: Versed (2) Fentanyl (50) Transesophageal probe was inserted and advanced into esophagus without difficulty by Tariq Chang MD, FACC. Echo enhancement indication: R/O Septal defect. Echo enhancement agent administered: Agitated Saline The AMBREEN was performed without complications. Synchronized Cardioversion acheived with 300 Joules after 1 attempt(s). Rhythm following Synchronized Cardioversion: Normal [place] [address] TRANSESOPHAGEAL ECHOCARDIOGRAM Name: JACQUELINEINES Nenita Room: [address] IN [facility]#: [id number] Admission: 01/14/21 Attend Phys: Nemesio Velasquez Discharge: Date of : 42 Date of Service: 01/25/21 1604 Report #: [id number] Throughout the procedure, the blood pressure, pulse oximetry, cardiac rhythm, and rate were monitored. The patient tolerated the procedure without adverse effects. Recovery from conscious sedation was uneventful and vital signs were stable. Left Ventricle The left ventricle is normal size. There is normal LV segmental wall motion. There is normal left ventricular wall thickness. Left ventricular systolic function is normal. LVEF is 55-60%. Right Ventricle The right ventricle is normal size. The right ventricular systolic function is normal. Atria Left atrium is mildly dilated. No thrombus is visualized in the left atrium or appendage. The interatrial septum is intact with no evidence for an atrial septal defect. Right atrium is mildly dilated. Aortic Valve Mild aortic valve sclerosis. No aortic regurgitation is present. There is no aortic valvular stenosis. Mitral Valve The mitral valve is normal in structure. Mild mitral regurgitation. No evidence of mitral valve stenosis. Tricuspid Valve The tricuspid valve is normal in structure. Mild tricuspid regurgitation. Pulmonic Valve The pulmonary valve is normal in structure. There is no pulmonic valvular regurgitation. Great Vessels The aortic root is normal in size. Pericardium There is no pericardial effusion. <Conclusion> The left ventricle is normal size. There is normal left ventricular [place] [address] TRANSESOPHAGEAL ECHOCARDIOGRAM Name: INES PHILLIPS Nenita Room: [address] IN ..#: [id number] Admission: 01/14/21 Attend Phys: Nemesio Velasquez Discharge: Date of : 42 Date of Service: 01/25/21 160 Report #: [id number] Left ventricular systolic function is normal. LVEF is 55-60%. There is normal LV segmental wall motion. Left atrium is mildly dilated. No thrombus is visualized in the left atrium or appendage. Right atrium is mildly dilated. The interatrial septum is intact with no evidence for an atrial septal defect. Mild aortic valve sclerosis. Mild mitral regurgitation. Mild tricuspid regurgitation. <ELECTRONICALLY SIGNED> By: Tariq Chang MD, [facility] 01/25/21 1604 1604 1604 Tariq Chang MD, FACC /INF
--- NOTE | 2021-01-25 16:07 | NUR ---
Pt converted back to a fib. Tri, cardiology POWER SAW MECHANIC called at this time. Pt not symptomatic, rate controlled.
--- NOTE | 2021-01-25 18:05 | NUR ---
PT HAD AMBREEN/CARDIOVERSION TODAY, X1 SHOCK AND PT CONVERTED FROM A FIB TO SR. A FEW HOURS LATER, PT CONVERTED BACK TO A FIB, RATE CONTROLLED. CARDIOLOGY AWARE OF THIS. PT REVEIVED X1 DOSE IV LASIX THIS SHIFT. CAME TO BEDSIDE FOR MAJORITY OF DAY. PT IS QUITE EDEMATOUS, 2-3+ THROUGHOUT. DR ALMANZA AWARE WITH ROUNDING TODAY AND THUS IV LASIX ORDERED AND IVF WERE STOPPED.
[2021-01-26 00:32] VITALS: BP 196/88
[2021-01-26 04:48] VITALS: BP 189/94
--- NOTE | 2021-01-26 06:45 | CARD ---
[address] [address] CARDIAC CATH REPORT Name: KELLI PHILLIPS Nenita Room: [address]#: [id number] Admission: 01/14/21 Attend Phys: Ramila Vaca Discharge: 02/08/21 Date of : 42 Report #: [id number] THIS REPORT FOR: cc: Anayeli Montanez NP, Michelle NP Liston, Michael J. MD [facility] ~ DATE OF SERVICE: 01/25/2021 PROCEDURE: Transesophageal-guided cardioversion. INDICATION: Persistent atrial fibrillation. DESCRIPTION OF PROCEDURE: After informed consent was obtained, the patient was given intravenous Versed and fentanyl for conscious sedation. The posterior pharynx was anesthetized using Cetacaine spray. A transesophageal echocardiogram was performed and will be reported separately. FINDINGS: No evidence of intracardiac thrombus. The patient was cardioverted from atrial fibrillation to normal sinus rhythm with a single biphasic shock of 300 joules. The patient tolerated the procedure well without complication. The patient recovered in the usual fashion. IMPRESSION: 1. Persistent atrial fibrillation. 2. Successful transesophageal guided direct current cardioversion to normal sinus rhythm. <ELECTRONICALLY SIGNED> By: Tariq Chang MD, FACC 01/26/21 [address] [facility] Jackson Chang MD, FACC /nt
[2021-01-26 08:00] VITALS: BP 168/76
--- NOTE | 2021-01-26 08:49 | NUR ---
PATIENT SLEPT OFF AND ON DURING THE NIGHT. VSS ON 2L 02 VIA NASAL CANNULA, ALTHOUGH BP ELEVATED. BLOOD PRESSURE MEDICATIONS GIVEN ORDERED. PATIENT REMAINS SINUS RHYTHM ON TELE MONITOR. PATIENT STILL CONFUSED AND LETHARGIC. LUNGS SOUND COARSE WITH SOME WHEEZING. PATIENT DOES COUGH UP SMALL AMOUNTS OF THICK YELLOW SPUTUM AT TIMES. PATIENT HAS BILATERAL EDEMA AND HAS TUBI AVIONICS MANAGER ON BILATERALLY. PATIENT ALSO HAS BILATERAL UPPER EXTREMITY EDEMA IN HANDS AND ARMS. OCONNOR TO DEPENDENT DRAINAGE WITH CLOUDY YELLOW URINE OUTPUT. RIGHT IJ-SL. PATIENT REMAINS ON ISOLATION FOR C-DIFF. NO DIARRHEA NOTED DURING SHIFT. FALL PRECAUTIONS IN PLACE AND HOURLY ROUNDS MADE. WILL CONTINUE WITH PLAN OF CARE AND NURSING TO MONITOR.
--- NOTE | 2021-01-26 08:58 | NUR ---
Call back from [facility]. Landen Nava accepted and submitting for auth this am. [phone], AMBREEN/CV today so not sure on exact Dc date yet, but will keep him updated.
[2021-01-26 12:00] VITALS: BP 151/58
--- NOTE | 2021-01-26 15:30 | NUR ---
PHONED AND LM FOR KNENA EMERSON @ [phone] [facility]. REGARDING PENDING DC AND TRANSPORTATION.
[2021-01-26 16:00] VITALS: BP 182/68
--- NOTE | 2021-01-26 19:32 | NUR ---
PT. ALERT, LETHARGIC, C/O DIFFICULTY BREATHING, HOB 30%, CALL LIGHT AND PERSONAL BELONGINGS PLACED WITHIN REACH. UOP MONITORED, STARTED ON DOBUTAMINE GTT TO PROMOTE CARDIAC OUTPUT. PT. IN BED, RESTING WITH EYES CLOSED, IN STABLE CONDITION AT THIS TIME.
[2021-01-26 20:10] VITALS: BP 134/52
[2021-01-27] VITALS: BP 132/47
[2021-01-27 04:00] VITALS: BP 157/69
[2021-01-27 05:42] LABS: HEMATOCRIT 23.3 % (37.0-47.0); HEMOGLOBIN 7.7 gm/dL (12.0-15.0); MCH 28.8 pg (26.0-34.0); MCHC 32.9 g/dL (28.0-37.0); MCV 87.6 fL (80.0-100.0); MPV 7.3 fl. (7.2-11.1); RBC 2.66 mil/uL (4.20-5.00); RDW-CV 17.6 % (10.5-14.5); WBC 5.1 thou/uL (4.0-11.0)
[2021-01-27 05:51] LABS: ANION GAP 8 mmol/L (7-16); BUN 71 mg/dL (7-18); CALCIUM 7.2 mg/dL (8.5-10.1); CHLORIDE 111 mmol/L (98-107); CHOLESTEROL 130 mg/dL (<200); CO2 24 mmol/L (21-32); CREATININE 2.3 mg/dL (0.6-1.3); GLUCOSE 117 mg/dL (70-99); HDL CHOLESTEROL 38 mg/dL (>40); LDL CHOLESTEROL 71 mg/dL (<100); SERUM ASSESSMENT CLEAR; SODIUM 143 mmol/L (136-145); TC:HDL 3.4 Ratio (Not establshd); TRIGLYCERIDE 107 mg/dL (<150); VLDL 21 mg/dL (<40)
--- NOTE | 2021-01-27 15:41 | NUR ---
Assumed care at 0730. Pt is alert and oriented. Assessment done and charted. Pt sat up in the chair today. Spouse visiting with the patient. Pt was repositioned multiple times. Pt is on dobutamine drip. Will continue to provide care for patient.
--- NOTE | 2021-01-27 15:52 | NUR ---
Case Management Followup Consultation with provider indicated pt is not yet medically clear for discharge. Pt is still accepted to [facility]. When medically clear, transportation to be arranged with Ailyn ([phone]).
[2021-01-27 17:39] VITALS: BP 162/61
[2021-01-27 20:00] VITALS: BP 132/50
[2021-01-28] VITALS: BP 151/57
[2021-01-28 04:00] VITALS: BP 151/58
--- NOTE | 2021-01-28 05:43 | NUR ---
ASSUMED CARE OF PT AFTER REPORT AT 1930. PT A&OX4. VSS. PHYSICAL ASSESSMENT COMPLETED AND CHARTED. PT ON O2 AT 2L NC. PT TRACING SR ON TELE. PT COMPLAINED OF BACK PAIN-MED GIVEN PER MAY. PT WITH EPISODES OF INCONTINENT BM. MAINTAINED ON DOBUTAMINE DRIP. PT WITH OCONNOR TO DEPENDENT DRAIN. FALL PRECAUTIONS IN PLACE. CALL LIGHT WITHIN REACH.
[2021-01-28 05:50] LABS: HEMATOCRIT 22.4 % (37.0-47.0); HEMOGLOBIN 7.4 gm/dL (12.0-15.0); MCH 28.8 pg (26.0-34.0); MCV 87.2 fL (80.0-100.0); MPV 7.2 fl. (7.2-11.1); RBC 2.57 mil/uL (4.20-5.00); RDW-CV 18.4 % (10.5-14.5)
[2021-01-28 05:59] LABS: CALCIUM 7.3 mg/dL (8.5-10.1); CREATININE 2.1 mg/dL (0.6-1.3); POTASSIUM 3.8 mmol/L (3.5-5.1)
[2021-01-28 08:15] VITALS: BP 155/62
[2021-01-28 11:30] VITALS: BP 155/55
--- NOTE | 2021-01-28 14:16 | NUR ---
Case Management Followup Pt not medically clear for discharge as she is currently on a dobutamine drip. Authorization for pt's acceptance to [facility] will need to be resubmitted once pt is medically clear.
[2021-01-28 16:00] VITALS: BP 170/69
--- NOTE | 2021-01-28 18:46 | NUR ---
Assumed care at 0730. Pt is alert and oriented. Assessment done and charted. Pt continues to be on dobutamine drip at 25.84ml/hr. Speech therapy came and assess the patient and recommended that pt be NPO for high risk of aspiration. Pt had 1650ml urine output from her walls. Will continue to provide care for patient.
[2021-01-28 20:00] VITALS: BP 144/57; BP 149/57
[2021-01-29] VITALS: BP 140/48
[2021-01-29 04:43] VITALS: BP 145/52
[2021-01-29 05:06] LABS: HEMATOCRIT 21.4 % (37.0-47.0); HEMOGLOBIN 7.1 gm/dL (12.0-15.0); MCH 28.8 pg (26.0-34.0); MCV 87.1 fL (80.0-100.0); MPV 7.8 fl. (7.2-11.1); RBC 2.46 mil/uL (4.20-5.00); RDW-CV 17.8 % (10.5-14.5)
[2021-01-29 06:47] LABS: ALBUMIN 1.6 g/dL (3.4-5.0); CALCIUM 7.2 mg/dL (8.5-10.1); MAGNESIUM 1.3 mg/dL (1.8-2.4); POTASSIUM 3.9 mmol/L (3.5-5.1); TOTAL BILIRUBIN 0.3 mg/dL (<0.1-1.0); TOTAL PROTEIN 4.7 g/dL (6.4-8.2)
[2021-01-29 08:05] VITALS: BP 135/52
[2021-01-29 11:30] VITALS: BP 148/54
[2021-01-29 16:00] VITALS: BP 144/53
--- NOTE | 2021-01-29 17:52 | NUR ---
Assumed care at 0730. Pt is alert and oriented. Assessment done and charted. Pt is NPO for Aspiration precaution pending swallow study. Pt is on dobutamine drip at 25.84ml per hour. Pt had good urine output. Pt was repositioned as needed. Will continue to provide care.
[2021-01-29 20:00] VITALS: BP 144/57
[2021-01-30 00:27] VITALS: BP 146/45
[2021-01-30 04:18] VITALS: BP 151/56
[2021-01-30 07:46] LABS: HEMATOCRIT 22.3 % (37.0-47.0); HEMOGLOBIN 7.2 gm/dL (12.0-15.0); MCHC 32.2 g/dL (28.0-37.0); MCV 86.9 fL (80.0-100.0); MPV 7.3 fl. (7.2-11.1); RBC 2.56 mil/uL (4.20-5.00); RDW-CV 17.9 % (10.5-14.5); WBC 6.4 thou/uL (4.0-11.0)
[2021-01-30 08:06] VITALS: BP 152/51
[2021-01-30 08:06] LABS: CALCIUM 7.2 mg/dL (8.5-10.1); CREATININE 1.9 mg/dL (0.6-1.3); MAGNESIUM 1.9 mg/dL (1.8-2.4); POTASSIUM 3.5 mmol/L (3.5-5.1)
[2021-01-30 12:00] VITALS: BP 139/51
[2021-01-30 16:00] VITALS: BP 133/47
[2021-01-30 22:43] VITALS: BP 155/40
[2021-01-31] VITALS (7 sets, daily range): BP systolic 140–188; BP diastolic 35–71
[2021-01-31 06:11] LABS: HEMATOCRIT 20.8 % (37.0-47.0); MCH 28.7 pg (26.0-34.0); MCHC 32.9 g/dL (28.0-37.0); MCV 87.2 fL (80.0-100.0); MPV 7.2 fl. (7.2-11.1); RBC 2.38 mil/uL (4.20-5.00); RDW-CV 18.6 % (10.5-14.5); WBC 6.8 thou/uL (4.0-11.0)
[2021-01-31 06:14] LABS: CALCIUM 7.2 mg/dL (8.5-10.1); CREATININE 1.8 mg/dL (0.6-1.3); POTASSIUM 3.4 mmol/L (3.5-5.1)
[2021-01-31 06:16] LABS: HEMOGLOBIN 6.8 gm/dL (12.0-15.0)
--- NOTE | 2021-01-31 06:37 | NUR ---
AT BEGINNING OF SHIFT PATIENT'S B/P WAS LOW AT 103/28. DR. LEI NOTIFIED AND HELD HYDRALAZINE, METROPOLOL, AND AMIODORONE. PT B/P EVENTUALLY WENT UP TO 152/50. MORNING HYDRALAZINE WAS GIVEN. RECEIVED CRITICAL HGB OF 6.8, DR. LEI NOTIFIED. PAIN MANAGED WITH REPOSITIONING. REMAINS FREE FROM INJURY.
--- NOTE | 2021-01-31 10:20 | NUR ---
ARELID NARAYAN [phone] SPOKE WITH [facility], ASKED FOR THEM TO RESUMIT AUTH FOR POTENTIAL DISCHARGE WITHIN OR .
[2021-01-31 11:01] LABS: INR 1.1; PROTIME 11.4 Seconds (9.20-11.50)
[2021-01-31 11:39] LABS: % SATURATION 20 % (20-39); IRON 26 ug/dL (50-175)
[2021-01-31 16:36] LABS: HEMATOCRIT 25.1 % (37.0-47.0); HEMOGLOBIN 8.4 gm/dL (12.0-15.0)
--- NOTE | 2021-01-31 19:43 | NUR ---
ASSUMED CARE AT 0715. PATIENT IS RESTING AT THIS TIME. PT IS PALE. DOBUTAMINE INFUSING RIGHT IJ TRIPLE LUMEN. TODAY, PATIENT RECEIVED RBC'S, AND TOLERATED WELL. TOMORROW PATIENT WILL HAVE SWALLOW STUDY. REMAINS NPO EXCEPT FOR ICE CHIPS AND MEDS IN APPLESAUCE.
[2021-02-01] VITALS (7 sets, daily range): BP systolic 155–188; BP diastolic 48–71
[2021-02-01 04:38] LABS: HEMATOCRIT 24.1 % (37.0-47.0); HEMOGLOBIN 8.1 gm/dL (12.0-15.0); MCH 29.4 pg (26.0-34.0); MCHC 33.6 g/dL (28.0-37.0); MCV 87.6 fL (80.0-100.0); RBC 2.74 mil/uL (4.20-5.00); RDW-CV 17.2 % (10.5-14.5); WBC 7.8 thou/uL (4.0-11.0)
[2021-02-01 04:45] LABS: CALCIUM 7.1 mg/dL (8.5-10.1); CREATININE 1.8 mg/dL (0.6-1.3); POTASSIUM 3.4 mmol/L (3.5-5.1)
--- NOTE | 2021-02-01 05:55 | NUR ---
PT AO X4 LYING IN BED AT TIME OF ASSESSMENT. HER VOICE IS GONE AND SHE WHISPERS VERY SOFTLY TO SPEAK. PT LIPS ARE VERY DRY AND SCABS ARE ON BOTTOM LIP. PT HAS BEEN NSR ON TELEMETRY. BP HAS BEEN ELEVATED 160-180/70-80s. LUNGS ARE CTA/DIM WITH DRY COUGH. PT ABD IS FLAT AND SOFT WITH PT COMPLAINING OF NAUSEA FOR WHICH PHENERGAN WAS GIVEN WITH GOOD RESULTS. PT STILL HAVING SOFT STOOLS THAT ARE COURSE AND BROWN. OCONNOR HAD 1700 CLEAR YELLOW URINE OUT THIS SHIFT. PT TURNED Q2 HR. COCCYX RED WITH FOAM BANDAGE IN PLACE. BLE EDEMA BETTER TODAY WITH RT>LT. PT CONTINUES ON DOBUTAMINE AT 25MG/HR. NPO STATUS WITH ICE CHIPS AND CRUSHED MEDS IN APPLESCAUCE UNTIL SWALLOW STUDY DONE TODAY. CALL LIGHT IN REACH AND BED ALARM ON FOR PT SAFETY
--- NOTE | 2021-02-01 09:02 | EKG ---
[place] [address] ELECTROCARDIOGRAM REPORT Name: KELLI PHILLIPS Room: [address] IN ..#: [id number] Admission: 01/14/21 Attend Phys: Nemesio Velsaquez Discharge: 02/08/21 Date of : 42 Date of Service: 01/31/21 0835 Report #: [id number] THIS REPORT FOR: //name// [facility] Test Date: 2021-01-31 Test Time: 08:35:52 Pat Name: INES PHILLIPS Department: Room: [address] Gender: F Shipping Assistant: : 1940 Requested By: Tri Nichols Order Number: [id number] Reading MD: Tariq Chang Measurements Intervals [place] Rate: 68 P: -43 NE: 174 QRS: -1 QRSD: 101 T: 157 QT: 285 QTc: 303 Interpretive Statements Sinus rhythm Low voltage, extremity leads Anteroseptal infarct, old Compared to ECG 01/22/2021 20:01:53 Low QRS voltage now present Possible ischemia now present Atrial fibrillation no longer present Left posterior fascicular block no longer present Myocardial infarct finding still present Electronically Signed On 02-01-2021 9:02:07 CDT by Tariq Chang [email or web address] <ELECTRONICALLY SIGNED> By: Tariq Chang MD, [facility] 02/01/21901 4 4 Tariq Chang MD, FAC /EPI
--- NOTE | 2021-02-01 15:00 | NUR ---
Case Management Followup CM and providers met to discuss length of stay and discharge. Providers indicated pt not yet medically clear for discharge. Pt medically accepted to [facility]. Pt's auth submitted to [facility]. Transportation to be arranged once pt clear for discharge. CM to continue to follow.
[2021-02-02] VITALS (7 sets, daily range): BP systolic 117–169; BP diastolic 41–99
[2021-02-02 07:05] LABS: HEMATOCRIT 25.5 % (37.0-47.0); HEMOGLOBIN 8.5 gm/dL (12.0-15.0); MCH 29.2 pg (26.0-34.0); MCHC 33.3 g/dL (28.0-37.0); MCV 87.5 fL (80.0-100.0); MPV 7.3 fl. (7.2-11.1); RBC 2.91 mil/uL (4.20-5.00); RDW-CV 17.4 % (10.5-14.5); WBC 9.1 thou/uL (4.0-11.0)
[2021-02-02 07:17] LABS: CALCIUM 7.3 mg/dL (8.5-10.1); CREATININE 1.7 mg/dL (0.6-1.3); POTASSIUM 3.3 mmol/L (3.5-5.1)
[2021-02-02] MEDS ORDERED: PACERONE 200 M200 M1 PO (14:28)
[2021-02-02] MEDS ORDERED: ELIQUIS5 MG PO (14:28)
[2021-02-02] MEDS ORDERED: IRON325 PO (14:28)
[2021-02-02] MEDS ORDERED: METOPROLOL SUCC25 M1 PO (14:29)
[2021-02-02] MEDS ORDERED: IMDUR 60 MG TAB60 M1 PO (14:29)
--- NOTE | 2021-02-02 15:02 | NUR ---
meagan contacted rossy with [facility] insur auth, per rossy still pending, as she had stated she hadnt receive any updated info for regional liasion. per rossy she will check and contact meagan w/update. meagan attempted to call [facility] 3x.
[2021-02-03 00:54] VITALS: BP 158/47
--- NOTE | 2021-02-03 02:31 | NUR ---
ASSUMED CARE OF PT AT 1900. PT IS ALERT AND ORIENTED X'S 2 TO 3. VSS. PERRLA. PT HAS A OCONNOR IN PLACE. PT IS SINUS BRADYCARDIA ON THE TELEMETRY. PT IS RESTING COMFORTABLY IN BED. RESPIRATIONS ARE EVEN AND NONLABORED. WILL CONTINUE TO MONITOR PT.
[2021-02-03 04:17] VITALS: BP 154/53
[2021-02-03 06:53] LABS: URINE BILIRUBIN NEGATIVE (Negative); URINE BLOOD NEGATIVE (Negative); URINE CLARITY SL CLOUDY; URINE COLOR YELLOW; URINE GLUCOSE-RANDOM NEGATIVE (Negative); URINE KETONES NEGATIVE (Negative); URINE PROTEIN TRACE (Negative); URINE UROBILINOGEN 0.2 E.U./dl (0.2-1.0)
[2021-02-03 07:01] LABS: URINE LEUKOCYTES-REFLEX 2+ (Negative); URINE NITRITE-REFLEX POSITIVE (Negative)
[2021-02-03 07:05] LABS: SQUAMOUS NONE SEEN /LPF (0-3)
[2021-02-03 07:06] LABS: MUCUS None Seen strn/LPF (None Seen); URINE RBC 0-2 Rare /HPF (0-2)
[2021-02-03 08:15] VITALS: BP 151/47
[2021-02-03] MEDS ORDERED: KLOR-CON M2020 MEQ PO (08:19)
[2021-02-03] MEDS ORDERED: BUMETANIDE 1 MG1 M1 PO (08:19)
[2021-02-03] MEDS ORDERED: HYDRALAZINE 2525 MG PO (08:19)
--- NOTE | 2021-02-03 09:43 | NUR ---
cm lft vm message for digital imaging specialistrossy and farideh alejandra re insur auth.
[2021-02-03] MEDS ORDERED: MACROBID 100 M100 MG PO (10:10)
[2021-02-03 12:12] VITALS: BP 154/52
[2021-02-03 15:55] VITALS: BP 163/57
[2021-02-03 19:45] VITALS: BP 162/118
[2021-02-04] VITALS: BP 176/58
[2021-02-04 04:00] VITALS: BP 160/60
--- NOTE | 2021-02-04 04:23 | NUR ---
PT A&O X 2-3, ON 2L, BP HIGH. MEDS CRUSHED AND GIVEN WITH APPLE SAUCE. C/O ABD PAIN, NORO GIVEN. ZOFRAN GIVEN X 1 FOR NAUSEA. PT INCONTINENT OF BOWEL. OCONNOR IN PLACE. TURNS, HOURLY ROUNDINGS DONE. CALL LIGHT WITHIN REACH. WILL CONTINUE TO MONITOR.
[2021-02-04 08:30] VITALS: BP 163/53
--- NOTE | 2021-02-04 10:44 | NUR ---
POC UPDATE: PER PT IS NOT MEDICALLY STABLE FOR DC TO [facility] POSITIVE STOOL. PENDING AUTH FOR [facility].
[2021-02-04 11:02] LABS: HEMATOCRIT 25.6 % (37.0-47.0); HEMOGLOBIN 8.5 gm/dL (12.0-15.0); MCH 29.4 pg (26.0-34.0); MCHC 33.2 g/dL (28.0-37.0); MCV 88.7 fL (80.0-100.0); MPV 7.3 fl. (7.2-11.1); RBC 2.89 mil/uL (4.20-5.00); RDW-CV 17.9 % (10.5-14.5); WBC 10.7 thou/uL (4.0-11.0)
[2021-02-04 11:08] LABS: CALCIUM 7.6 mg/dL (8.5-10.1); CREATININE 1.5 mg/dL (0.6-1.3); POTASSIUM 3.7 mmol/L (3.5-5.1)
[2021-02-04 11:36] VITALS: BP 149/57
[2021-02-04 20:00] VITALS: BP 162/40
[2021-02-04 23:50] VITALS: BP 157/49
[2021-02-05 04:00] VITALS: BP 153/45
--- NOTE | 2021-02-05 04:32 | NUR ---
ASSUMED PT CARE AT APPROX 1930. PT IS AWAKE, ORIENTED TO SELF AND PLACE AND SITUATION. PT IS NOT IN DISTRESS, NO DESATURATIONS NOTED ON 2L OF O2/NC. PT IS TRACING SR/SB ON THE HEART MONITOR. PT C/O BACK PAIN PARTIALLY RELIEVED BY PAIN MEDS GIVEN PER MAY. POSITION CHANGES DONE. PT C/O NAUSEA RELIEVED BY ZOFRAN GIVEN PER MAY. NO ACUTE CHANGES OVERNIGHT, CALL LIGHT WITHIN REACH. HIGH FALL PRECAUTIONS IN PLACE.
[2021-02-05 08:00] VITALS: BP 155/49
[2021-02-05 12:41] VITALS: BP 150/47
[2021-02-05 17:20] VITALS: BP 138/41
--- NOTE | 2021-02-05 18:41 | NUR ---
I ASSUMED CARE OF THE PATIENT AT 0700. SHE IS ALERT AND ORIENTED X3, BUT FORGETFUL. BED IS IN THE LOW LOCKED POSITION AND CALL LIGHT IS IN REACH. PATIENT NEEDS ARE MET DURING HOURLY ROUNDING AND PAIN IS MANAGED WITH PRN MEDS. BED ALARM IS IN USE. SACRAL BORDER IS ADDED TO WOUND AFTER CLEANSED. BED BATH GIVEN BY AIDE. MEDS NEED CRUSHED IN APPLESAUCE OR SHERBET. PUR WICK IS IN PLACE AND IS WORKING. ISOLATION IS MAINTAINED. WILL CONTINUE TO MONITOR.
[2021-02-05 20:00] VITALS: BP 144/48
[2021-02-06 00:31] VITALS: BP 134/43
[2021-02-06 04:52] VITALS: BP 151/43
[2021-02-06 08:00] VITALS: BP 177/68
[2021-02-06 12:26] VITALS: BP 162/54
[2021-02-06 16:15] VITALS: BP 154/53
[2021-02-06 20:00] VITALS: BP 146/50
[2021-02-07] VITALS: BP 151/50
[2021-02-07 04:00] VITALS: BP 174/52
[2021-02-07 04:37] LABS: HEMOGLOBIN 7.6 gm/dL (12.0-15.0); MCH 29.9 pg (26.0-34.0); MCHC 34.4 g/dL (28.0-37.0); MCV 87.1 fL (80.0-100.0); MPV 7.4 fl. (7.2-11.1); RBC 2.53 mil/uL (4.20-5.00); RDW-CV 17.2 % (10.5-14.5); WBC 10.1 thou/uL (4.0-11.0)
[2021-02-07 04:43] LABS: ALBUMIN 1.8 g/dL (3.4-5.0); CALCIUM 7.8 mg/dL (8.5-10.1); CREATININE 1.4 mg/dL (0.6-1.3); MAGNESIUM 1.2 mg/dL (1.8-2.4); POTASSIUM 4.1 mmol/L (3.5-5.1); TOTAL BILIRUBIN 0.6 mg/dL (<0.1-1.0); TOTAL PROTEIN 5.7 g/dL (6.4-8.2)
[2021-02-07 08:00] VITALS: BP 170/46
[2021-02-07 12:00] VITALS: BP 154/60
[2021-02-07 16:30] VITALS: BP 145/43
--- NOTE | 2021-02-07 16:49 | CON ---
[address] [address] CONSULTATION Name: JACQUELINEKELLI Nenita Room: [address] IN M.R.#: [id number] Admission: 01/14/21 Attend Phys: Ramila Vaca Discharge: 02/08/21 Date of : 42 Report #: [id number] THIS REPORT FOR: cc: Anayeli Montanez NP, Michelle NP Namin, Farid M. MD ~ cc: Anayeli Montanez NP DATE OF CONSULTATION: 02/04/2021 PRIMARY CARE PHYSICIAN: Anayeli Montanez NP Please note at the time of this dictation, the patient was seen and physically examined by myself. REASON FOR CONSULTATION: Possible GI bleed, positive occult stool and on anticoagulant therapy. HISTORY OF PRESENT ILLNESS: This 80-year-old female who was brought to this facility with an altered mental status and was essentially obtunded. She was found in the emergency room to be in acute renal failure with hyperkalemia and underwent urgent dialysis. At that time, she was diagnosed with C. diff colitis due to diarrhea stools, which she was treated with vancomycin for 10 days. Note, at that time, on admission, she was given a unit of blood for a low hemoglobin. She has received a second unit of blood on 01/31/2021 for her hemoglobin dropped to 6.8 and then with them doing a fecal occult stool noted that it was positive. We were asked to come in to evaluate for possible GI bleed. During this hospitalization, patient also then developed atrial fibrillation requiring anticoagulation therapy. She did state that she was diagnosed with a hole in her heart and has had multiple strokes. Apparently, she was supposed to be on anticoagulation in the past, but stopped taking it some time ago. The patient is a very poor historian and most of this was obtained from her chart. ALLERGIES: No known drug allergies. MEDICATIONS FROM HOME: See MAR. PAST MEDICAL HISTORY: History of strokes. The patient states she has had cancer in the past, but cannot tell me what. Acute kidney injury, hyperkalemia, atrial fibrillation and C. difficile. PAST SURGICAL HISTORY: Unknown. FAMILY HISTORY: She states [place] [address] CONSULTATION Name: INES PHILLIPS Room: [address] IN [facility]#: [id number] Admission: 01/14/21 Attend Phys: Ramila Vaca Discharge: Date of : 42 Report #: [id number] SOCIAL HISTORY: Apparently, patient lives by herself because when she was found by EMS, she was covered in bed bugs when she was very obtunded. REVIEW OF SYSTEMS: Twelve-point review of systems is essentially negative except what is mentioned in the HPI. PHYSICAL EXAMINATION: VITAL SIGNS: Temperature 36.7, pulse 61, respirations 18, blood pressure 160/60. HEART: Irregular rate and rhythm with a murmur, systolic noted. ABDOMEN: Soft, positive bowel sounds in all four quadrants with tenderness noted in the epigastric area. The patient had a bowel movement last evening, but no documentation as if it was melanotic or any bright red blood was noted, positive occult stool noted. LABORATORY DATA: Hemoglobin on 01/31/2021 was 6.8 and after a unit of blood, she was 8.5 on 02/02/2021. Her labs for today are still pending. White count was 9.1 and platelets were 252. BUN was 35, creatinine 1.7 and those were on the 3rd as well. Today's are still pending. PT is 11.4, INR is 1.1. CT of the abdomen and pelvis showed diffuse anasarca with moderate bilateral pleural effusions. IMPRESSION: 1. Acute on chronic anemia. 2. Epigastric pain. 3. Nausea. 4. Positive occult stool. 5. Anticoagulant therapy, atrial fib, Eliquis. 6. Chronic kidney disease, stage III. 7. History of Clostridium difficile on admission. 8. Family history of colon cancer, father. PLAN: 1. EGD today with Dr. Miguel. 2. Obtain okay from cardiology. 3. Eliquis on hold since last night. 4. Further recommendations to be made after the procedure has been performed later today. 5. Obtain records from [facility] on an EGD and a colonoscopy the patient [place] [address] CONSULTATION Name: INES PHILLIPS Room: [address] IN ..#: [id number] Admission: 01/14/21 Attend Phys: Ramila Vaca Discharge: Date of : 42 Report #: [id number] Thank you for allowing us to participate in this patient's care. Please do not hesitate to call with any questions regard to this consult. <ELECTRONICALLY SIGNED> By: Merced Miguel MD 02/07/21 1649 [id number] [id number] Miguel MD /nt
--- NOTE | 2021-02-07 17:13 | NUR ---
CM Followup - Pt may be medically clear for discharge tomorrow. Yasmany contacted to initiate auth.
[2021-02-07 20:00] VITALS: BP 136/50
[2021-02-08 00:01] VITALS: BP 167/60
[2021-02-08 04:00] VITALS: BP 158/59
--- NOTE | 2021-02-08 07:31 | NUR ---
PATIENT SLEPT PART OF THE NIGHT. PATIENT WAS GIVEN PAIN MEDICINE ONCE THIS SHIFT. PATIENT CALLS OUT FREQUENTLY. PATIENT COULD POSSIBLY DC TODAY TO FACILITY. WILL CONTINUE TO MONITOR.
[2021-02-08] MEDS ORDERED: ELIQUIS5 MG PO (09:27)
[2021-02-08] MEDS ORDERED: PERCOCET 10-321 EAC1 PO (09:27)
[2021-02-08] MEDS ORDERED: CARAFATE 11 GM/10 M1 PO (09:27)
[2021-02-08] MEDS ORDERED: PROTONIX40 M2 PO (09:27)
[2021-02-08 10:00] VITALS: BP 130/51
[2021-02-08 11:43] VITALS: BP 125/45
[2021-02-08 15:42] VITALS: BP 151/57
--- NOTE | 2021-02-08 16:30 | NUR ---
Case Management Followup Pt medically clear for discharge. Pt to be discharged to [facility] on 02/08/21 with transport arriving between 530p-6p. No additional CM needs.
--- NOTE | 2021-02-11 11:08 | PATH ---
[address] [address] PATHOLOGY RPT PROCEDURE Name: JACQUELINEKELLI Nenita Room: [address] IN M.R.#: [id number] Admission: 01/14/21 Date of : 42 Discharge: 02/08/21 Report #: [id number] Path Case #: [id number] LCA Accession Number: [id number] . 01 Material submitted: . PART A: duodenum - DUODENAL BIOPSY TO R/O DUODENITIS PART B: gastrointestinal site - GASTRIC BIOPSY TO R/O H. PYLORI . 01 Clinical history: . EGD IN OR RENAL FAILURE, HYPERKALEMIA . 02 Diagnosis: A. Duodenal biopsy: - Moderate nonspecific active duodenitis, negative for granulomas, viral inclusions and dysplasia/adenomatous change. . B. Gastric biopsy: - Mild nonspecific chronic gastritis, negative for Helicobacter pylori organisms, granulomas, and dysplasia. (JACKELYN:pit; 02/10/2021) . Special stain on B. H. pylori immuno QTP 02/10/2021 1154 Local . 02 Electronically signed: . Claude Varela MD, Pathologist NPI- [id number] . 01 Gross description: . A. The specimen is received in formalin, labeled "Vale Phillips, duodenal biopsy". Received are two segments of pale thurman tissue measuring 0.2 and 0.3 cm in maximum dimensions. The specimen is submitted entirely in cassette A1. . B. The specimen is received in formalin, labeled "Vale Pooleion, gastric biopsy". Received are four segments of pale thurman tissue ranging in size from 0.2-0.6 cm in maximum dimensions. The specimen is submitted entirely in cassette B1. (CAA; 02/09/2021) QA/QA 02/09/2021 1129 Local . 02 Pathologist provided ICD-10: K29.80, K29.50 . 02 CPT . 934930, 243924, A63418 Specimen Comment: A courtesy copy of this report has been sent to [phone] [address] PATHOLOGY RPT PROCEDURE Name: KELLI PHILLIPS Nenita Room: [address] IN M.R.#: [id number] Admission: 01/14/21 Date of : 42 Discharge: 02/08/21 Report #: [id number] Path Case #: [id number] Specimen Comment: [phone], Specimen Comment: Report sent to , DR LEI / DR AUGUSTIN Specimen Comment: A duplicate report has been generated due to demographic updates. Performed at: 01 [facility] [id number] [facility] [address], [place] [id number] MD Remington Castelan MD Phone: [phone] Performed at: 02 [facility] [address] [place], [place] [id number] MD Claude Varela MD Phone: [phone]
== END 2021-02-08 17:49 | DRG 371 ==
LOC: M.ERS 06:10 → M.ORTHSURG 09:17 → M.ICU 09:17 → M.ORTHSURG 09:17 → M.TBA-ER 09:17 → M.ICU 11:25 → M.ORTHSURG 01-17 15:28
PROVIDERS: Family Medicine; Internal Medicine; Internal Medicine Cardiovascular Disease; Internal Medicine Nephrology; Personal Emergency Response Attendant; Registered Nurse; ADMIT Internal Medicine; ATTEND Internal Medicine
PROC: B548ZZA Ultrasonography of Superior Vena Cava, Guidance (ICD-10-PCS; principal; 2021-01-14)
PROC: 02HV33Z Insertion of Infusion Device into Superior Vena Cava, Percutaneous Approach (ICD-10-PCS; principal; 2021-01-14)
PROC: 30233N1 Transfusion of Nonautologous Red Blood Cells into Peripheral Vein, Percutaneous Approach (ICD-10-PCS; 2021-01-17)
PROC: B24BZZ4 Ultrasonography of Heart with Aorta, Transesophageal (ICD-10-PCS; 2021-01-25)
PROC: 5A2204Z Restoration of Cardiac Rhythm, Single (ICD-10-PCS; 2021-01-25)
PROC: 0DB68ZX Excision of Stomach, Via Natural or Artificial Opening Endoscopic, Diagnostic (ICD-10-PCS; 2021-02-04)
PROC: 0D758ZZ Dilation of Esophagus, Via Natural or Artificial Opening Endoscopic (ICD-10-PCS; 2021-02-04)
PROC: 0DB98ZX Excision of Duodenum, Via Natural or Artificial Opening Endoscopic, Diagnostic (ICD-10-PCS; 2021-02-04)
DX: A04.72 Enterocolitis due to Clostridium difficile, not specified as recurrent (principal); N17.0 Acute kidney failure with tubular necrosis; G93.41 Metabolic encephalopathy; J81.0 Acute pulmonary edema; I50.43 Acute on chronic combined systolic (congestive) and diastolic (congestive) heart failure; E87.2 Acidosis; I48.19 Other persistent atrial fibrillation; E87.1 Hypo-osmolality and hyponatremia; B37.0 Candidal stomatitis; Q21.0 Ventricular septal defect; I13.0 Hypertensive heart and chronic kidney disease with heart failure and stage 1 through stage 4 chronic kidney disease, or unspecified chronic kidney disease; I95.89 Other hypotension; E86.1 Hypovolemia; Z20.822 Contact with and (suspected) exposure to COVID-19; D64.9 Anemia, unspecified; E87.5 Hyperkalemia; E83.51 Hypocalcemia; N18.9 Chronic kidney disease, unspecified; I25.10 Atherosclerotic heart disease of native coronary artery without angina pectoris; I48.0 Paroxysmal atrial fibrillation; I25.5 Ischemic cardiomyopathy; K21.00 Gastro-esophageal reflux disease with esophagitis, without bleeding; K22.2 Esophageal obstruction; K44.9 Diaphragmatic hernia without obstruction or gangrene; K29.70 Gastritis, unspecified, without bleeding; K26.9 Duodenal ulcer, unspecified as acute or chronic, without hemorrhage or perforation; Z79.899 Other long term (current) drug therapy

== ENCOUNTER 2021-02-12 15:14 | Inpatient (IN) | payer OTHER ==
[~2021-02-12] VITALS: Ht 167.6 cm; Wt 53.8 kg
--- NOTE | ~2021-02-12 | PROC ---
[facility] [address] [facility] [place] [address] PROCEDURE REPORT Name: KELLI PHILLIPS Room: [address] IN .R.#: [id number] Admission: 02/14/21 Attend Phys: Ramila Vaca Discharge: Date of : 41 Report #: [id number] THIS REPORT FOR: cc: Anayeli Montanez NP,Anayeli KEYS [facility],Medical Records Staff ~ For GI report, please see the Provation report in Perceptive 7 content. By: 1457Medical Records Staff GEOFFREY /DORETHA
--- NOTE | ~2021-02-12 | PROC ---
[facility] [address] [facility] [place] [address] PROCEDURE REPORT Name: KELLI PHILLIPS Room: [address] IN .R.#: [id number] Admission: 02/14/21 Attend Phys: Ramila Vcaa Discharge: Date of : 42 Report #: [id number] THIS REPORT FOR: cc: Anayeli Montanez NP,Anayeli KEYS [facility],Medical Records Staff ~ For GI report, please see the Provation report in Perceptive 7 content. By: 1457Medical Records Staff GEOFFREY /DORETHA
--- NOTE | ~2021-02-12 | PROC ---
[facility] [address] [place] [address] PROCEDURE REPORT Name: KELLI PHILLIPS Room: [address] IN .R.#: [id number] Admission: 02/14/21 Attend Phys: Ramila Vaca Discharge: Date of : 42 Report #: [id number] THIS REPORT FOR: cc: Anayeli Montanez NP,Anayeli KEYS [facility],Medical Records Staff ~ For GI report, please see the Provation report in Perceptive 7 content. By: 1601Medical Records Staff GEOFFREY /DORETHA
[~2021-02-12 15:14] MED LIST changes: +BUMETANIDE 1 MG1 M1 PO; +CARAFATE 11 GM/10 M1 PO; +COZAAR 25 MG TA25 M1 PO; +FUROSEMIDE 40 M40 MG PO; +IMDUR 60 MG TAB60 M1 PO; +IRON325 PO; +KLOR-CON M2020 MEQ PO; +LISINOPRIL5 MG PO; +MACROBID 100 M100 MG PO; +METOPROLOL SUCC25 M1 PO; +PACERONE 200 M200 M1 PO; +PERCOCET 10-321 EAC1 PO; +PROTONIX40 M2 PO
[2021-02-12 15:25] VITALS: BP 102/42
[2021-02-12 16:24] LABS: ABSOLUTE BASOPHILS 0.1 thou/uL (0.0-0.2); ABSOLUTE LYMPHOCYTES 1.3 thou/uL (0.8-5.3); ABSOLUTE MONOCYTES 0.9 thou/uL (0.0-1.2); ABSOLUTE NEUTROPHILS 10.8 thou/uL (1.6-8.1); BASOPHILS 0.5 %; EOSINOPHILS 0.1 %; HEMATOCRIT 25.7 % (37.0-47.0); HEMOGLOBIN 8.5 gm/dL (12.0-15.0); LYMPHOCYTES 9.7 %; MCH 29.4 pg (26.0-34.0); MCHC 33.1 g/dL (28.0-37.0); MCV 88.8 fL (80.0-100.0); MONOCYTES 7.2 %; MPV 7.3 fl. (7.2-11.1); NUCLEATED RBCS 0 /100WBC; PLATELET COUNT* 350 thou/uL (150-400); POLYS 82.5 %; RBC 2.89 mil/uL (4.20-5.00); RDW-CV 17.9 % (10.5-14.5); WBC 13.1 thou/uL (4.0-11.0)
[2021-02-12 18:37] LABS: ALBUMIN 2.2 g/dL (3.4-5.0); CALCIUM 7.9 mg/dL (8.5-10.1); POTASSIUM 4.4 mmol/L (3.5-5.1); TOTAL BILIRUBIN 0.6 mg/dL (<0.1-1.0); TOTAL PROTEIN 6.6 g/dL (6.4-8.2)
[2021-02-12 22:51] VITALS: BP 153/51
[2021-02-13] VITALS (7 sets, daily range): BP systolic 130–154; BP diastolic 38–62
[2021-02-13 15:51] LABS: CALCIUM 7.8 mg/dL (8.5-10.1); CREATININE 2.1 mg/dL (0.6-1.3); MAGNESIUM 1.4 mg/dL (1.8-2.4); PHOSPHORUS* 3.2 mg/dL (2.5-4.9); POTASSIUM 4.6 mmol/L (3.5-5.1)
[2021-02-13 20:41] LABS: URINE BILIRUBIN NEGATIVE (Negative); URINE BLOOD 3+ (Negative); URINE CLARITY SL CLOUDY; URINE COLOR YELLOW; URINE GLUCOSE-RANDOM NEGATIVE (Negative); URINE KETONES NEGATIVE (Negative); URINE NITRITE-REFLEX NEGATIVE (Negative); URINE PROTEIN 1+ (Negative); URINE UROBILINOGEN 0.2 E.U./dl (0.2-1.0)
[2021-02-13 20:43] LABS: URINE LEUKOCYTES-REFLEX 3+ (Negative)
[2021-02-13 21:01] LABS: CASTS None Seen /LPF (None Seen); CRYSTALS None Seen /LPF (None Seen); SQUAMOUS 4-10 Moderate /LPF (0-3); URINE RBC >20 Many /HPF (0-2); URINE WBC-REFLEX >25 Many /HPF (0-5)
[2021-02-14] VITALS: BP 12/49; BP 125/49
[2021-02-14 04:00] VITALS: BP 110/37
[2021-02-14 08:00] VITALS: BP 122/51
[2021-02-14 12:00] VITALS: BP 95/47
[2021-02-14 16:00] VITALS: BP 91/40
[2021-02-14 20:14] VITALS: BP 124/43
[2021-02-15] VITALS (7 sets, daily range): BP systolic 120–142; BP diastolic 36–58
[2021-02-15 04:30] LABS: MCH 29.8 pg (26.0-34.0); MCHC 33.4 g/dL (28.0-37.0); RBC 2.1 mil/uL (4.20-5.00); RDW-CV 18.2 % (10.5-14.5); WBC 9.9 thou/uL (4.0-11.0)
[2021-02-15 04:35] LABS: HEMATOCRIT 18.7 % (37.0-47.0); HEMOGLOBIN 6.3 gm/dL (12.0-15.0)
[2021-02-15 04:59] LABS: CALCIUM 7.5 mg/dL (8.5-10.1); CREATININE 1.9 mg/dL (0.6-1.3); POTASSIUM 4.6 mmol/L (3.5-5.1)
[2021-02-15 05:19] LABS: HEMATOCRIT 18.9 % (37.0-47.0); HEMOGLOBIN 6.3 gm/dL (12.0-15.0)
--- NOTE | 2021-02-15 15:55 | EKG ---
[place] [address] ELECTROCARDIOGRAM REPORT Name: KELLI PHILLIPS Room: [address] IN [facility].#: [id number] Admission: 02/14/21 Attend Phys: Nemesio Velasquez Discharge: Date of : 42 Date of Service: 02/12/21 1545 Report #: [id number] THIS REPORT FOR: //name// [facility] ED Test Date: 2021-02-12 Test Time: 15:45:23 Pat Name: KELLI PHILLIPS Department: Room: [facility] Gender: F Business Continuity Analyst: SAEID : 1940 Requested By: Romeo Fajardo Order Number: [id number] MD: Tariq Chang Measurements Intervals [place] Rate: 51 P: 104 PA: 194 QRS: 17 QRSD: 133 T: 65 QT: 560 QTc: 516 Interpretive Statements Sinus bradycardia Nonspecific ST depression Prolonged QT interval Compared to ECG 01/31/2021 08:35:52 Myocardial infarct finding no longer present Electronically Signed On 02-13-2021 11:39:50 BAT CARRIER by Tariq Chang Electronically Signed On 02-15-2021 15:55:13 BAT CARRIER by Tariq Chang [email or web address] <ELECTRONICALLY SIGNED> By: Tariq Chang MD, FACC 02/15/21 1555 1545 1545 Tariq Chang MD, FACC /EPI
[2021-02-15 17:24] LABS: ABSOLUTE EOSINOPHILS 0.1 thou/uL (0.0-0.7); ABSOLUTE LYMPHOCYTES 1.3 thou/uL (0.8-5.3); ABSOLUTE MONOCYTES 0.8 thou/uL (0.0-1.2); ABSOLUTE NEUTROPHILS 6.2 thou/uL (1.6-8.1); BASOPHILS 0.2 %; EOSINOPHILS 0.8 %; HEMATOCRIT 23.2 % (37.0-47.0); HEMOGLOBIN 7.9 gm/dL (12.0-15.0); LYMPHOCYTES 15.1 %; MCH 29.2 pg (26.0-34.0); MCHC 33.9 g/dL (28.0-37.0); MONOCYTES 9.5 %; NUCLEATED RBCS 0 /100WBC; PLATELET COUNT* 308 thou/uL (150-400); POLYS 74.4 %; RDW-CV 18.6 % (10.5-14.5); WBC 8.3 thou/uL (4.0-11.0)
[2021-02-15 18:34] LABS: ESR (SEDRATE) 55 mm/hr (0-30)
[2021-02-16] VITALS (8 sets, daily range): BP systolic 113–184; BP diastolic 37–67
--- NOTE | 2021-02-16 09:41 | EKG ---
[place] [address] ELECTROCARDIOGRAM REPORT Name: JACQUELINEKELLI P Room: [address] ADM IN M.R.#: [id number] Admission: 02/14/21 Attend Phys: Nemesio Velasquez Discharge: Date of : 42 Date of Service: 02/16/21 0917 Report #: [id number] THIS REPORT FOR: //name// [facility] Test Date: 2021-02-16 Test Time: 09:17:33 Pat Name: KELLI PHILLIPS Department: Room: [address] Gender: F Farmworker Poultry: BALDEV : 1940 Requested By: Tri Nichols Order Number: [id number] Reading MD: Carl De Leon Measurements Intervals [place] Rate: 56 P: ND: QRS: 30 QRSD: 108 T: 109 QT: 430 QTc: 416 Interpretive Statements sinus bradycardia Low voltage, extremity leads LVH with secondary repolarization abnormality Anterior Q waves, possibly due to LVH Compared to ECG 02/12/2021 15:45:23 Low QRS voltage now present Q waves now present Prolonged QT interval no longer present Electronically Signed On 02-16-2021 9:40:53 PROSTHETIC DENTIST by Carl De Leon [email or web address] <ELECTRONICALLY SIGNED> By: Carl De Leon MD, FACC 02/16/21939 6 6 Carl De Leon MD, FAC /EPI
[2021-02-17 05:51] VITALS: BP 165/54
[2021-02-17 08:00] VITALS: BP 151/55
[2021-02-17 12:00] VITALS: BP 171/56
[2021-02-17 16:00] VITALS: BP 146/59
[2021-02-17 20:00] VITALS: BP 133/47
[2021-02-18 02:06] VITALS: BP 128/72
[2021-02-18 05:45] LABS: ABSOLUTE LYMPHOCYTES 1.3 thou/uL (0.8-5.3); ABSOLUTE MONOCYTES 0.7 thou/uL (0.0-1.2); ABSOLUTE NEUTROPHILS 4.5 thou/uL (1.6-8.1); BASOPHILS 0.4 %; EOSINOPHILS 0.6 %; HEMOGLOBIN 8.3 gm/dL (12.0-15.0); LYMPHOCYTES 19.5 %; MCH 28.7 pg (26.0-34.0); MCV 86.7 fL (80.0-100.0); MONOCYTES 10.4 %; MPV 6.8 fl. (7.2-11.1); NUCLEATED RBCS 0 /100WBC; PLATELET COUNT* 315 thou/uL (150-400); POLYS 69.1 %; RBC 2.89 mil/uL (4.20-5.00); RDW-CV 19.1 % (10.5-14.5); WBC 6.6 thou/uL (4.0-11.0)
[2021-02-18 06:01] LABS: ALBUMIN 1.8 g/dL (3.4-5.0); CALCIUM 8.3 mg/dL (8.5-10.1); CREATININE 1.3 mg/dL (0.6-1.3); POTASSIUM 4.2 mmol/L (3.5-5.1); TOTAL BILIRUBIN 0.4 mg/dL (<0.1-1.0); TOTAL PROTEIN 5.9 g/dL (6.4-8.2)
[2021-02-18 06:19] VITALS: BP 128/76
[2021-02-18 08:00] VITALS: BP 142/61
[2021-02-18 12:00] VITALS: BP 120/40
[2021-02-18 16:00] VITALS: BP 122/45
--- NOTE | 2021-02-18 18:07 | PATH ---
[address] [address] PATHOLOGY RPT PROCEDURE Name: JACQUELINEKELLI Room: [address] IN M.R.#: [id number] Admission: 02/14/21 Date of : 42 Discharge: Report #: [id number] Path Case #: [id number] LCA Accession Number: [id number] . 01 Material submitted: . small bowel - SMALL BOWEL BIOPSY . 01 Clinical history: . SYNCOPE EGD IN OR . 02 Diagnosis: "Small bowel biopsy": - Small bowel mucosa without significant pathologic alteration. - Negative for active inflammation, villous atrophy, Giardia, and malignancy. (MLK/db; 02/18/2021) LBQ 02/18/2021 1718 Local . 02 Electronically signed: . Deepti Orr MD, Pathologist NPI- [id number] . 01 Gross description: . The specimen is received in formalin, labeled "Jacqueline, Kelli, small bowel biopsy". Received are 3 segments of pale thurman tissue ranging in size from 0.3 to 0.4 cm in maximum dimensions. The specimen is submitted entirely in cassette A1.([facility]; 02/17/2021) [facility] 02/17/2021 1102 Local . 02 Pathologist provided ICD-10: R55 . 02 CPT . 289881 Specimen Comment: A courtesy copy of this report has been sent to [phone] Specimen Comment: [phone], Specimen Comment: Report sent to , DR AVILES / DR AUGUSTIN Performed at: 01 [facility] [address] [id number] MD Remington Castelan MD Phone: [phone] Performed at: 02 [facility] [address] [id number] MD Nilay Keys MD Phone: [phone]
[2021-02-18 20:00] VITALS: BP 139/46
[2021-02-19 00:34] VITALS: BP 133/53
[2021-02-19 04:00] VITALS: BP 128/60
[2021-02-19 08:00] VITALS: BP 176/62
[2021-02-19 08:44] LABS: ABSOLUTE EOSINOPHILS 0.1 thou/uL (0.0-0.7); ABSOLUTE LYMPHOCYTES 1.6 thou/uL (0.8-5.3); ABSOLUTE MONOCYTES 0.8 thou/uL (0.0-1.2); ABSOLUTE NEUTROPHILS 4.5 thou/uL (1.6-8.1); BASOPHILS 0.3 %; HEMOGLOBIN 7.9 gm/dL (12.0-15.0); MCH 28.6 pg (26.0-34.0); MCV 86.5 fL (80.0-100.0); MONOCYTES 11.2 %; NUCLEATED RBCS 0 /100WBC; PLATELET COUNT* 307 thou/uL (150-400); POLYS 64.5 %; RBC 2.78 mil/uL (4.20-5.00); RDW-CV 18.9 % (10.5-14.5)
[2021-02-19 09:14] LABS: ALBUMIN 1.8 g/dL (3.4-5.0); CALCIUM 8.1 mg/dL (8.5-10.1); CREATININE 1.2 mg/dL (0.6-1.3); POTASSIUM 3.8 mmol/L (3.5-5.1); TOTAL BILIRUBIN 0.4 mg/dL (<0.1-1.0); TOTAL PROTEIN 5.6 g/dL (6.4-8.2)
[2021-02-19 11:30] VITALS: BP 151/64
[2021-02-19 16:00] VITALS: BP 118/50
[2021-02-19 20:00] VITALS: BP 112/48
[2021-02-20 01:31] VITALS: BP 154/51
[2021-02-20 06:19] VITALS: BP 175/55
[2021-02-20 12:14] VITALS: BP 155/52
[2021-02-20 16:50] VITALS: BP 142/44
[2021-02-20 19:30] VITALS: BP 142/48
[2021-02-20 23:39] VITALS: BP 130/43
[2021-02-21 03:36] VITALS: BP 121/50
[2021-02-21 08:00] VITALS: BP 140/53
[2021-02-21 16:00] VITALS: BP 138/46
[2021-02-21 19:50] VITALS: BP 113/40
[2021-02-22] VITALS (7 sets, daily range): BP systolic 120–147; BP diastolic 44–56
[2021-02-23 00:19] VITALS: BP 157/53
[2021-02-23 05:23] LABS: ABSOLUTE EOSINOPHILS 0.1 thou/uL (0.0-0.7); ABSOLUTE MONOCYTES 0.7 thou/uL (0.0-1.2); ABSOLUTE NEUTROPHILS 5.9 thou/uL (1.6-8.1); BASOPHILS 0.4 %; EOSINOPHILS 0.8 %; HEMATOCRIT 24.3 % (37.0-47.0); HEMOGLOBIN 8.1 gm/dL (12.0-15.0); LYMPHOCYTES 22.6 %; MCHC 33.3 g/dL (28.0-37.0); MCV 87.1 fL (80.0-100.0); MONOCYTES 8.5 %; NUCLEATED RBCS 0 /100WBC; PLATELET COUNT* 287 thou/uL (150-400); POLYS 67.7 %; WBC 8.7 thou/uL (4.0-11.0)
[2021-02-23 05:31] VITALS: BP 165/50
[2021-02-23 05:33] LABS: CALCIUM 8.1 mg/dL (8.5-10.1); CREATININE 1.1 mg/dL (0.6-1.3); POTASSIUM 3.4 mmol/L (3.5-5.1); TOTAL BILIRUBIN 0.5 mg/dL (<0.1-1.0); TOTAL PROTEIN 5.7 g/dL (6.4-8.2)
[2021-02-23 07:40] VITALS: BP 158/51
[2021-02-23 12:26] VITALS: BP 167/55
[2021-02-23 20:00] VITALS: BP 107/38
[2021-02-24 00:12] VITALS: BP 155/61
[2021-02-24 04:36] VITALS: BP 184/61
[2021-02-24 05:17] LABS: ABSOLUTE EOSINOPHILS 0.1 thou/uL (0.0-0.7); ABSOLUTE LYMPHOCYTES 2.1 thou/uL (0.8-5.3); ABSOLUTE MONOCYTES 0.9 thou/uL (0.0-1.2); ABSOLUTE NEUTROPHILS 5.7 thou/uL (1.6-8.1); BASOPHILS 0.5 %; EOSINOPHILS 0.6 %; HEMATOCRIT 26.6 % (37.0-47.0); HEMOGLOBIN 8.9 gm/dL (12.0-15.0); LYMPHOCYTES 23.4 %; MCH 29.4 pg (26.0-34.0); MCHC 33.5 g/dL (28.0-37.0); MCV 87.7 fL (80.0-100.0); NUCLEATED RBCS 0 /100WBC; PLATELET COUNT* 293 thou/uL (150-400); POLYS 65.5 %; RBC 3.03 mil/uL (4.20-5.00); RDW-CV 19.3 % (10.5-14.5); WBC 8.8 thou/uL (4.0-11.0)
[2021-02-24 05:32] LABS: ALBUMIN 2.1 g/dL (3.4-5.0); CREATININE 0.9 mg/dL (0.6-1.3); TOTAL BILIRUBIN 0.4 mg/dL (<0.1-1.0); TOTAL PROTEIN 6.1 g/dL (6.4-8.2)
[2021-02-24 05:35] LABS: POTASSIUM 2.7 mmol/L (3.5-5.1)
[2021-02-24 08:00] VITALS: BP 133/54
[2021-02-24] MEDS ORDERED: TOPROL XL25 MG PO (08:31)
[2021-02-24 13:09] VITALS: BP 126/47
[2021-02-24 17:08] VITALS: BP 130/40
[2021-02-24 20:20] VITALS: BP 124/53
[2021-02-25] VITALS: BP 116/41
[2021-02-25 04:00] VITALS: BP 124/50
[2021-02-25 08:00] VITALS: BP 125/40
[2021-02-25 13:51] VITALS: BP 128/52
[2021-02-25 16:00] VITALS: BP 128/46
[2021-02-25 20:00] VITALS: BP 107/40
[2021-02-26 00:28] VITALS: BP 140/45
[2021-02-26 04:00] VITALS: BP 136/51
[2021-02-26 08:35] VITALS: BP 116/48
[2021-02-26 12:38] VITALS: BP 103/42
[2021-02-26 18:10] VITALS: BP 108/44
[2021-02-26 20:00] VITALS: BP 110/43
[2021-02-27] VITALS: BP 135/46
[2021-02-27 04:00] VITALS: BP 142/72; BP 153/33
[2021-02-27 07:35] VITALS: BP 118/39
[2021-02-27 12:00] VITALS: BP 124/57
[2021-02-27 19:45] VITALS: BP 115/43
[2021-02-28 05:11] VITALS: BP 133/52
[2021-02-28 08:00] VITALS: BP 132/50
[2021-02-28 20:35] VITALS: BP 128/58
[2021-03-01 08:00] VITALS: BP 154/48
[2021-03-01 09:33] VITALS: BP 154/48
--- NOTE | 2021-03-01 16:06 | PATH ---
[address] [address] PATHOLOGY RPT PROCEDURE Name: KELLI PHILLIPS Nenita Room: [address] IN .R.#: [id number] Admission: 02/14/21 Date of : 41 Discharge: 03/01/21 Report #: [id number] Path Case #: [id number] LCA Accession Number: [id number] . 01 Material submitted: . PART A: colon - TRANSVERSE POLYP. Modifiers: transverse PART B: sigmoid colon - SIGMOID ULCER . 01 Clinical history: . B. SUSPICIOUS FOR COLONIC ISCHEMIA COLONOSCOPY . 02 Diagnosis: A. Transverse polyp: - Tubular adenoma, negative for high grade dysplasia. . B. Sigmoid ulcer: - Mild active colitis with mucosal atrophy compatible with ischemic colitis, negative for granulomas, viral inclusions and dysplasia. See comment. LB 03/01/2021 1128 Local . 02 Comment: The sigmoid ulcer biopsy (B) shows benign colonic mucosa with mild active inflammation evidenced by neutrophils predominantly in the lamina propria without alexandra ulceration present and focal atrophy is seen with preservation of the deeper aspects of crypts. There is some crypt disarray and minimal basal lymphoplasmacytosis suggesting chronic inflammation and although the findings are most consistent with ischemic colitis, inflammatory bowel disease should also be considered in the clinical differential. (JACKELYN/db; 03/01/2021) . 02 Electronically signed: . Claude Varela MD, Pathologist NPI- [id number] . 01 Gross description: . A. The specimen is received in formalin, labeled "Kelli Phillips, transverse polyp". Received is light thurman vegetative material measuring 1.0 x 1.0 x 0.1 cm in aggregate dimensions. Soft tissue is not grossly identified within the specimen container. The specimen is filtered and entirely submitted in cassette A1. . B. The specimen is received in formalin, labeled "Kelli Phillips, sigmoid ulcer suspicious for colonic ischemia". Received are three segments of pale thurman tissue ranging in size from 0.2-0.5 cm in maximum dimensions. The specimen is submitted entirely in cassette B1[place] [address] PATHOLOGY RPT PROCEDURE Name: KELLI PHILLIPS Nenita Room: [address] IN .R.#: [id number] Admission: 02/14/21 Date of : 42 Discharge: 03/01/21 Report #: [id number] Path Case #: [id number] (CAA; 02/28/2021) QAC/QA 02/28/2021 0921 Local . 02 Pathologist provided ICD-10: D12.3, K52.9 . 02 CPT . 380678, 381939 Specimen Comment: A courtesy copy of this report has been sent to [phone] Specimen Comment: [phone], Specimen Comment: Report sent to , DR LEI / DR AUGUSTIN Performed at: [address] [facility] [address], [place], [place] [id number] MD Remington Castelan MD Phone: [phone] Performed at: 02 [facility] [address], [place], [place] [id number] MD Claude Varela MD Phone: [phone]
--- NOTE | 2021-03-02 09:43 | CON ---
[address] [address] CONSULTATION Name: KELLI PHILLIPS Nenita Room: [address] IN M.R.#: [id number] Admission: 02/14/21 Attend Phys: Ramila Vaca Discharge: 03/01/21 Date of : 42 Report #: [id number] THIS REPORT FOR: cc: Anayeli Montanez NP, Michelle NP Khosla, Parveen K. MD ~ DATE OF CONSULTATION: 02/17/2021 HISTORY OF PRESENT ILLNESS: A 80-year-old female patient who was evaluated by me to determine any neurological etiology for the patient's episodes of syncope. I reviewed other consultants' notes and this patient had a syncope as well as falls. She was apparently sitting down and she has multiple consultants involved in her care now. It looks like she is being seen by GI as well as Cardiology. She did not have any seizure activity. She does not know what brought it on. She was not postictal after this. REVIEW OF SYSTEMS: Positive for what looks like paroxysmal atrial fibrillation, cardiomyopathy; that is being addressed by Cardiology. She also has anemia with a hemoglobin going as low as 6.3 and she is going to be seen by GI. She does not have any new eye, ENT, respiratory, , musculoskeletal, constitutional, dermatological, hematological, psychiatric, throat, allergic symptom associated with present symptomatology. PAST MEDICAL HISTORY: Positive for these kind of spell, which is going on for several months at least. FAMILY HISTORY: Unremarkable. SOCIAL HISTORY: Apparently, she is in a nursing facility. PHYSICAL EXAMINATION: She is alert. She can tell me what month it is. She could not tell me the exact date. It took a long time, but ultimately she told me what hospital she is in. Speech looks mostly unremarkable. Cranial nerve examination II-XII looks unremarkable. I could not look at the patient's fundus. Strength in the upper extremity looks pretty symmetrical. In the right lower extremity, she has what looks like lymphedema. She said she had it for several years and there is nothing new. She uses a wheelchair for going around places. She had good position sense in both lower extremities. Reflexes are somewhat diminished. There is no ataxia in the upper extremity, I could not look at the patient's fundus. She is moderately built individual. There are no dysmorphic features of eyes, ears and face. Pulses are palpable. She has lymphedema on the right lower extremity. Respiratory examination mostly looked unremarkable. Cardiac examination indicate that she has a history [place] [address] CONSULTATION Name: KELLI PHILLIPS Nenita Room: [address]#: [id number] Admission: 02/14/21 Attend Phys: Ramila Vaca Discharge: 03/01/21 Date of : 42 Report #: [id number] IMPRESSION: 1. Episode of syncope. I agree that the syncope was most likely systemic causes. She has multiple problems. She has anemia, some hypertension, apparently cardiomyopathy. She has a subclavian stenosis, which can cause syncope, but vertebral appeared to be antegrade. 2. She does have carotid stenosis, but there is no referable sign on the left side, which will indicate that this carotid stenosis is symptomatic. She also has on the left side. Those need to be addressed, but both would not cause syncope, but the subclavians can. RECOMMENDATIONS: 1. We will get an MRI done to see if it shows any disease. 2. EEG. 3. She will need a Vascular Surgery consult as an outpatient for the carotid stenosis, which appeared to be asymptomatic, but we need to look at the MRI. I discussed all of it with the patient and I discussed her options with her and she wants to follow this plan. Thank you very much for this referral. <ELECTRONICALLY SIGNED> By: Serg Lara MD 03/02/21 0943 1200 1912Parjenny Lara MD /chris
== END 2021-03-01 15:15 | DRG 177 ==
LOC: M.ERS 15:14 → M.TBA-ER 18:51 → M.2W 18:51 → M.TBA-ER 18:51 → M.2W 02-13 18:06 → M.3W 02-28 18:45
PROVIDERS: Emergency Medicine Emergency Medical Services; Internal Medicine; Internal Medicine Gastroenterology; ADMIT Internal Medicine; ATTEND Internal Medicine
DX: J69.0 Pneumonitis due to inhalation of food and vomit (principal); E43 Unspecified severe protein-calorie malnutrition; L89.152 Pressure ulcer of sacral region, stage 2; G93.41 Metabolic encephalopathy; I50.23 Acute on chronic systolic (congestive) heart failure; D62 Acute posthemorrhagic anemia; N39.0 Urinary tract infection, site not specified; Z68.1 Body mass index [BMI] 19.9 or less, adult; J90 Pleural effusion, not elsewhere classified; I13.0 Hypertensive heart and chronic kidney disease with heart failure and stage 1 through stage 4 chronic kidney disease, or unspecified chronic kidney disease; N17.9 Acute kidney failure, unspecified; I42.9 Cardiomyopathy, unspecified; K63.3 Ulcer of intestine; I25.10 Atherosclerotic heart disease of native coronary artery without angina pectoris; E78.5 Hyperlipidemia, unspecified; J44.9 Chronic obstructive pulmonary disease, unspecified; E11.22 Type 2 diabetes mellitus with diabetic chronic kidney disease; N18.9 Chronic kidney disease, unspecified; G89.29 Other chronic pain; D72.829 Elevated white blood cell count, unspecified; I48.0 Paroxysmal atrial fibrillation; R60.0 Localized edema; Z04.3 Encounter for examination and observation following other accident; W18.30XA Fall on same level, unspecified, initial encounter; K21.00 Gastro-esophageal reflux disease with esophagitis, without bleeding; K29.80 Duodenitis without bleeding; I95.9 Hypotension, unspecified; I65.23 Occlusion and stenosis of bilateral carotid arteries; K63.5 Polyp of colon; F03.90 Unspecified dementia, unspecified severity, without behavioral disturbance, psychotic disturbance, mood disturbance, and anxiety; R53.81 Other malaise; E53.8 Deficiency of other specified B group vitamins; K64.8 Other hemorrhoids; Z20.822 Contact with and (suspected) exposure to COVID-19; Z28.21 Immunization not carried out because of patient refusal; Z87.891 Personal history of nicotine dependence; Z87.11 Personal history of peptic ulcer disease; Z86.73 Personal history of transient ischemic attack (TIA), and cerebral infarction without residual deficits; Z91.81 History of falling; Z79.899 Other long term (current) drug therapy; Z79.01 Long term (current) use of anticoagulants; Z88.0 Allergy status to penicillin; Z91.048 Other nonmedicinal substance allergy status; Y93.89 Activity, other specified; Y92.129 Unspecified place in nursing home as the place of occurrence of the external cause; Y99.8 Other external cause status; Z80.0 Family history of malignant neoplasm of digestive organs